=== PATIENT | female | born 1970 | race Caucasian/White ===

== ENCOUNTER 2020-01-29 07:45 | Inpatient (IN) | payer BC ==
[2020-01-29] MEDS ORDERED: SODIUM CHLORIDE 0.9% 500 ML 500 ML IV ONE ×2 (08:13→09:07)
--- NOTE | 2020-01-29 08:16 | ED ---
General Adult HPI - General Chief complaint: Chest Pain Stated complaint: chest pain Time Seen by Provider: 01/29/20 07:56 Source: patient, RN notes reviewed, old records reviewed Mode of arrival: wheelchair Limitations: no limitations - History of Present Illness Initial comments: 49-year-old female presented for evaluation of chest pain. She states that yesterday evening she developed a left flank pain which is somewhat typical for this patient with a known history of renal colic and recurrent kidney stones. This progressed into a anterior chest pain with associated left arm tingling and numbness. Patient has no known history of coronary artery disease. She states the pain persisted yesterday evening and she felt she should be checked out this morning. She has no known history of coronary artery disease, she is a former smoker, she does have a family history of coronary artery disease. She denies vomiting but states she had some nausea associated with her symptoms. No abdominal pain. No dysuria or hematuria. - Related Data Home Medications Medication Instructions Recorded Confirmed Aspirin/Caffeine [Anacin 400-32 mg 1 tab PO DAILY 01/29/20 01/29/20 Tablet] Naproxen Sodium [Aleve] 660 mg PO ONCE PRN 01/29/20 01/29/20 Allergies Allergy/AdvReac Type Severity Reaction Status Date / Time No Known Allergies Allergy Verified 01/29/20 09:13 Review of Systems ROS Statement: Those systems with pertinent positive or pertinent negative responses have been documented in the HPI. ROS Other: All systems not noted in ROS Statement are negative. Past Medical History Past Medical History: No Reported History History of Any Multi-Drug Resistant Organisms: None Reported Past Surgical History: Tubal Ligation Additional Past Surgical History / Comment(s): lithotripsy for kidney stones Past Psychological History: No Psychological Hx Reported Smoking Status: Former smoker Past Alcohol Use History: None Reported Past Drug Use History: None Reported General Exam Limitations: no limitations General appearance: alert, in no apparent distress Head exam: Present: atraumatic, normocephalic Eye exam: Present: normal appearance, PERRL ENT exam: Present: normal exam Neck exam: Present: normal inspection. Absent: tenderness, meningismus Respiratory exam: Present: normal lung sounds bilaterally. Absent: respiratory distress, wheezes Cardiovascular Exam: Present: regular rate, normal rhythm GI/Abdominal exam: Present: soft. Absent: distended, tenderness, guarding Extremities exam: Present: normal inspection, normal capillary refill. Absent: pedal edema, calf tenderness Back exam: Present: normal inspection, full ROM. Absent: CVA tenderness (R), CVA tenderness (L) Neurological exam: Present: alert, oriented X3, CN II-XII intact. Absent: motor sensory deficit Psychiatric exam: Present: normal affect, normal mood Skin exam: Present: warm, dry, intact. Absent: cyanosis, diaphoretic Course Vital Signs 01/29/20 01/29/20 01/29/20 07:51 08:40 08:45 Temperature 98 F Pulse Rate 70 59 L 65 Respiratory 16 Rate Blood Pressure 226/100 200/109 200/109 O2 Sat by Pulse 99 98 Oximetry 01/29/20 01/29/20 01/29/20 09:00 09:15 09:30 Temperature Pulse Rate 60 57 L Respiratory Rate Blood Pressure 203/111 184/149 204/105 O2 Sat by Pulse Oximetry 01/29/20 09:45 Temperature Pulse Rate 57 L Respiratory Rate Blood Pressure 215/111 O2 Sat by Pulse Oximetry EKG Findings - EKG Comments: EKG Findings:: EKG: Normal sinus rhythm, rate of 61, CT interval 148, QRS duration 96, QTC [address] segment elevation. Medical Decision Making - Medical Decision Making 49-year-old female with chest pain and hypertension. EKG showing sinus rhythm without ST segment elevation. Chest x-ray is negative for acute cardiac primary findings. Given the significantly elevated blood pressure she does receive CT angiography of the aorta. This is negative for dissection or aneurysmal change. She has severe hydronephrosis on the right and multiple obstructing renal calculi bilaterally. She has a history of renal colic and stones. She did have some left-sided flank pain although not severe. She has hemoglobin 10.6. Calcium is elevated at 11.2. Initial troponin is negative. She has been initiated on both IV and oral antihypertensive medication. She will be admitted for cardiac rule out. Case discussed with Dr. Luna who will admit. - Lab Data Result diagrams: 01/29/20 08:27 01/29/20 08:27 Lab Results 01/29/20 01/29/20 01/29/20 Range/Units 08:27 08:27 08:27 WBC 7.7 (3.8-10.6) k/uL RBC 4.91 (3.80-5.40) m/uL Hgb 10.6 L (11.4-16.0) gm/dL Hct 36.3 (34.0-46.0) % MCV 74.0 L (80.0-100.0) fL MCH 21.6 L (25.0-35.0) pg MCHC 29.2 L (31.0-37.0) g/dL RDW 17.2 H (11.5-15.5) % Plt Count 306 (150-450) k/uL Neutrophils % 66 % Lymphocytes % 22 % Monocytes % 5 % Eosinophils % 5 % Basophils % 1 % Neutrophils # 5.1 (1.3-7.7) k/uL Lymphocytes # 1.7 (1.0-4.8) k/uL Monocytes # 0.4 (0-1.0) k/uL Eosinophils # 0.4 (0-0.7) k/uL Basophils # 0.1 (0-0.2) k/uL Hypochromasia Marked Anisocytosis Slight Microcytosis Moderate PT 9.5 (9.0-12.0) sec INR 0.9 (<1.2) APTT 23.0 (22.0-30.0) sec D-Dimer 0.31 (<0.60) mg/L FEU Sodium 135 L (137-145) mmol/L Potassium 4.1 (3.5-5.1) mmol/L Chloride 111 H (98-107) mmol/L Carbon Dioxide 21 L (22-30) mmol/L Anion Gap 3 mmol/L BUN 16 (7-17) mg/dL Creatinine 0.68 (0.52-1.04) mg/dL Est GFR (CKD-EPI)AfAm >90 (>60 ml/min/1.73 sqM) Est GFR (CKD-EPI)NonAf >90 (>60 ml/min/1.73 sqM) Glucose 102 H (74-99) mg/dL Calcium 11.2 H (8.4-10.2) mg/dL Magnesium 1.7 (1.6-2.3) mg/dL Total Bilirubin 0.4 (0.2-1.3) mg/dL AST 27 (14-36) U/L ALT 16 (4-34) U/L Alkaline Phosphatase 138 H (38-126) U/L Troponin I (0.000-0.034) ng/mL NT-Pro-B Natriuret Pep pg/mL Total Protein 7.0 (6.3-8.2) g/dL Albumin 3.9 (3.5-5.0) g/dL Lipase 78 (23-300) U/L Urine Color Urine Appearance (Clear) Urine pH (5.0-8.0) Ur Specific [place] (1.001-1.035) Urine Protein (Negative) Urine Glucose (UA) (Negative) Urine Ketones (Negative) Urine Blood (Negative) Urine Nitrite (Negative) Urine Bilirubin (Negative) Urine Urobilinogen (<2.0) mg/dL Ur Leukocyte Esterase (Negative) Urine RBC (0-5) /hpf Urine WBC (0-5) /hpf Ur Squamous Epith Cells (0-4) /hpf Urine Bacteria (None) /hpf Urine Mucus (None) /hpf 01/29/20 01/29/20 01/29/20 Range/Units 08:27 08:27 08:27 WBC (3.8-10.6) k/uL RBC (3.80-5.40) m/uL Hgb (11.4-16.0) gm/dL Hct (34.0-46.0) % MCV (80.0-100.0) fL MCH (25.0-35.0) pg MCHC (31.0-37.0) g/dL RDW (11.5-15.5) % Plt Count (150-450) k/uL Neutrophils % % Lymphocytes % % Monocytes % % Eosinophils % % Basophils % % Neutrophils # (1.3-7.7) k/uL Lymphocytes # (1.0-4.8) k/uL Monocytes # (0-1.0) k/uL Eosinophils # (0-0.7) k/uL Basophils # (0-0.2) k/uL Hypochromasia Anisocytosis Microcytosis PT (9.0-12.0) sec INR (<1.2) APTT (22.0-30.0) sec D-Dimer (<0.60) mg/L FEU Sodium (137-145) mmol/L Potassium (3.5-5.1) mmol/L Chloride (98-107) mmol/L Carbon Dioxide (22-30) mmol/L Anion Gap mmol/L BUN (7-17) mg/dL Creatinine (0.52-1.04) mg/dL Est GFR (CKD-EPI)AfAm (>60 ml/min/1.73 sqM) Est GFR (CKD-EPI)NonAf (>60 ml/min/1.73 sqM) Glucose (74-99) mg/dL Calcium (8.4-10.2) mg/dL Magnesium (1.6-2.3) mg/dL Total Bilirubin (0.2-1.3) mg/dL AST (14-36) U/L ALT (4-34) U/L Alkaline Phosphatase (38-126) U/L Troponin I <0.012 (0.000-0.034) ng/mL NT-Pro-B Natriuret Pep 497 pg/mL Total Protein (6.3-8.2) g/dL Albumin (3.5-5.0) g/dL Lipase (23-300) U/L Urine Color Light Yellow Urine Appearance Clear (Clear) Urine pH 6.5 (5.0-8.0) Ur Specific [place] 1.010 (1.001-1.035) Urine Protein Trace H (Negative) Urine Glucose (UA) Negative (Negative) Urine Ketones Negative (Negative) Urine Blood Moderate H (Negative) Urine Nitrite Negative (Negative) Urine Bilirubin Negative (Negative) Urine Urobilinogen <2.0 (<2.0) mg/dL Ur Leukocyte Esterase Trace H (Negative) Urine RBC 96 H (0-5) /hpf Urine WBC 3 (0-5) /hpf Ur Squamous Epith Cells 2 (0-4) /hpf Urine Bacteria Rare H (None) /hpf Urine Mucus Rare H (None) /hpf Disposition Clinical Impression: Chest pain, Hypertension Disposition: ADMITTED IP TO THIS HOSP Condition: Stable Is patient prescribed a controlled substance at d/c from ED?: No Referrals: Jenifer Katz MD [Primary Care Provider] - 1-2 days Decision to Admit Reason: Admit from EC Decision Date: 01/29/20 Decision Time: 10:38
[2020-01-29 08:39] LABS: Anisocytosis Slight; Basophils # (A) 0.1 k/uL (0-0.2); Basophils % (A) 1 %; Eosinophils # (A) 0.4 k/uL (0-0.7); Eosinophils % (A) 5 %; HCT 36.3 % (34.0-46.0); HGB 10.6 gm/dL (11.4-16.0); Hypochromasia Marked; Lymphocytes # (A) 1.7 k/uL (1.0-4.8); Lymphocytes % (A) 22 %; MCH 21.6 pg (25.0-35.0); MCHC 29.2 g/dL (31.0-37.0); Mean Platelet Volume 7.2; Microcytosis Moderate; Monocytes # (A) 0.4 k/uL (0-1.0); Monocytes % (A) 5 %; Neutrophils # (A) 5.1 k/uL (1.3-7.7); Neutrophils % (A) 66 %; Platelet Count 306 k/uL (150-450); RBC 4.91 m/uL (3.80-5.40); RDW 17.2 % (11.5-15.5); WBC 7.7 k/uL (3.8-10.6)
--- NOTE | 2020-01-29 08:42 | XR ---
EXAMINATION TYPE: XR chest 1V portable DATE OF EXAM: 01/29/2020 Comparison: None Clinical History: 49-year-old female chest pain Findings: Heart limits of normal in size. Aorta and pulmonary vasculature within normal limits. Hazy lower lung opacities relating to overlying soft tissue. This limits the lung parenchyma particularly at the lef t base. No definite consolidation or pleural effusion. Impression: Limited exam due to patient body habitus. No definite acute process.
[2020-01-29 08:46] LABS: Appearance,Urine Clear (Clear); Bacteria,Urine Rare /hpf; Bilirubin,Urine Negative (Negative); Blood,Urine Moderate (Negative); Color,Urine Light Yellow; Glucose,Urine (UA) Negative (Negative); Ketones,Urine Negative (Negative); Leukocyte Esterase,Urine Trace (Negative); Mucus,Urine Rare /hpf; Nitrite,Urine Negative (Negative); PH, Urine 6.5 (5.0-8.0); Protein,Urine Trace (Negative); RBC,Urine 96 /hpf (0-5); Squamous Epithelial Cell,Urine 2 /hpf (0-4); Urobilinogen,Urine <2.0 mg/dL (<2.0); WBC,Urine 3 /hpf (0-5)
[2020-01-29 08:52] LABS: ALT 16 U/L (4-34); AST 27 U/L (14-36); African American GFR (CKD) >90 (>60 ml/min/1.73 sqM); Albumin 3.9 g/dL (3.5-5.0); Alkaline Phosphatase 138 U/L (38-126); Anion Gap 3 mmol/L; Blood Urea Nitrogen 16 mg/dL (7-17); Calcium 11.2 mg/dL (8.4-10.2); Carbon Dioxide 21 mmol/L (22-30); Chloride 111 mmol/L (98-107); Glucose 102 mg/dL (74-99); Magnesium 1.7 mg/dL (1.6-2.3); Non-African American GFR(CKD) >90 (>60 ml/min/1.73 sqM); Potassium 4.1 mmol/L (3.5-5.1); Sodium 135 mmol/L (137-145); Total Bilirubin 0.4 mg/dL (0.2-1.3)
[2020-01-29 08:54] LABS: D-Dimer 0.31 mg/L FEU (<0.60); INR 0.9 (<1.2); Prothrombin Time 9.5 sec (9.0-12.0)
[2020-01-29] MEDS ORDERED: LABETALOL 5 MG/ML VIAL MDV IVP STA (09:05)
--- NOTE | 2020-01-29 10:20 | CT ---
EXAMINATION TYPE: CT angio thor/abd pel aorta DATE OF EXAM: 01/29/2020 COMPARISON: Chest radiograph 01/25/2020 HISTORY: chest pain, flank pain CT DLP: 1943.9 mGycm. Automated Exposure Control for Dose Reduction was Utilized. CONTRAST: CTA scan of the thorax, abdomen and pelvis is performed without and with IV Contrast, patient injecte d with 100 mL of Isovue 370. Three-dimensional and MIP images generated and utilized on a separate wo rkstation. FINDINGS: CTA chest, abdomen, and pelvis: Precontrast images demonstrate no evidence of intramural hematoma. Le ft-sided arch with classic branching pattern. The thoracic and abdominal aorta does not demonstrate a neurysmal dilatation, dissection, or stenosis. No atherosclerotic disease. Thoracic aortic great ve ssels are patent. The origins of the superior mesenteric artery, renal arteries, inferior mesenteric artery, and celiac axis are patent. Bilateral iliac vessels and common femoral arteries are normal in morphology. Three-dimensional and NIP images consistent with the above findings. There is good opacification of the main and segmental pulmonary arteries with no evidence of filling defect to suggest pulmonary embolus. LUNGS: Numerous sub-5 mm subsolid pulmonary nodules are seen scattered throughout the bilateral lungs . 3 mm pulmonary nodule adjacent to the major fissure within the right lower lobe which may represent perifissural lymph node (504:50). There is no pleural effusion or pneumothorax seen. The tracheobr onchial tree is patent. MEDIASTINUM/SOFT TISSUES: No axillary, hilar, or mediastinal lymphadenopathy greater than 1 cm. Cardi ac size is normal. No pericardial effusion. LIVER: Normal. BILIARY SYSTEM: Normal. PANCREAS: Normal. SPLEEN: Normal. ADRENALS: Normal. KIDNEYS: Severe hydronephrosis bilaterally. On the right there is severe proximal hydroureter with a 5 x 7 mm calculus within the ureteropelvic junction (502:58). On the left there is severe hydroureter with 3 m id ureteral calculi measuring 6 x 8 mm, 2 mm, and 6 mm (502:56), and within the distal ureter there i s Steinstrasse ureteral calculi spanning 12 mm (502:68), and 2 additional adjacent calculi measuring 6 and 7 mm near the ureterovesicular junction (502:66). Additional nonobstructing renal calculi bilaterally, largest measuring up to 11 x 1 x 6 mm (502:72) a nd 13 x 5 x 17 mm (502:64) within the right renal lower pole. Largest calculi on the left measure up to 6 mm within the left renal pole and interpolar kidney, with additional scattered punctate left corbin al calculi. No calculi within the urinary bladder. BOWEL: No obstruction or thickening. PERITONEUM: No pneumoperitoneum. No free fluid. LYMPH NODES: No lymphadenopathy. PELVIS: Normal urinary bladder. Normal uterus. Cystic area of the right adnexa measures 2.6 cm, withi n range for physiologic changes. MUSCULOSKELETAL: Degenerative changes of the spine. IMPRESSION: 1. No thoracic or aortic aneurysm or dissection. 2. Although not a dedicated PE study, there is no main or segmental pulmonary emboli. 3. Severe hydronephrosis and hydroureter bilaterally. There is a 5 x 7 mm obstructing calculus of the right ureteropelvic junction. There are numerous obstructing left ureteral calculi of the mid and di stal ureter as described above. Additional nonobstructing renal calculi.
[2020-01-29] MEDS ORDERED: amLODIPine 5 MG TAB PO STA (10:30)
[2020-01-29] MEDS ORDERED: TAMSULOSIN 0.4 MG CAP.ER.24H PO STA (10:31)
[2020-01-29] MEDS ORDERED: NALOXONE 0.4 MG/ML 1 ML VIAL IV PRN (10:33)
[2020-01-29] MEDS ORDERED: ACETAMINOPHEN TAB 325 MG TAB PO PRN (10:33)
[2020-01-29] MEDS ORDERED: MORPHINE SULFATE 4 MG/ML SYRINGE IV PRN (10:33)
[2020-01-29] MEDS ORDERED: hydrALAZINE HCL 20 MG/ML 1 ML VIAL IVP STA (11:28)
[2020-01-29] MEDS ORDERED: ALPRAZolam 0.25 MG TAB PO PRN (20:40)
[2020-01-29] MEDS ORDERED: TEMAZEPAM 15 MG CAP PO PRN (20:41)
[2020-01-29] MEDS ORDERED: ASPIRIN PO SCH (20:45)
[2020-01-29] MEDS ORDERED: CAFFEINE PO SCH (20:45)
[2020-01-29] MEDS: HEPARIN SODIUM,PORCINE 5,000 UNIT/ML 1 ML VIAL SQ SCH (20:58)
[2020-01-29] MEDS: SODIUM CHLORIDE 0.9% 1,000 ML IV SCH (20:58)
--- NOTE | 2020-01-29 22:25 | HP ---
HISTORY AND PHYSICAL DATE OF SERVICE: 01/29/2020 CHIEF COMPLAINTS: Chest pain and flank pain. HISTORY OF PRESENT ILLNESS: This 49-year-old woman with a past medical history of multiple medical problems, including history of nephrolithiasis, tubal ligation, being followed by Dr. Katz in the outpatient setting, initially had left flank pain which was thought to be associated with renal stones, but subsequently patient had chest pain felt in the anterior part of the chest with some left arm tingling and numbness. The patient came to [facility] and was admitted for evaluation and treatment. There is no history of any fever, rigor or chills. No history of headache, loss of consciousness, seizures. WBC 7.7, hemoglobin 10.6, sodium is 135. UA shows some RBCs. Otherwise, a thoracic aortic CT scan was done which showed numerous sub-solid pulmonary nodules and severe hydronephrosis. Hydroureter bilaterally was also noted. The patient was admitted for further evaluation and treatment. PAST MEDICAL HISTORY: History of kidney stones, history of nicotine dependence. HOME MEDICATIONS: 1. Aleve 660 mg p.o. p.r.n. 2. Anacin 1 tablet p.o. daily. ALLERGIES: NONE. FAMILY HISTORY: History of CHF, coronary artery disease, diabetes mellitus, myocardial infarction in the family. SOCIAL HISTORY: No history of smoking. No history of alcohol intake. REVIEW OF SYSTEMS: ENT: No diminished hearing. No diminished vision. CARDIOVASCULAR SYSTEM: As mentioned earlier. RESPIRATORY SYSTEM: As mentioned earlier. GI: As mentioned earlier. : As mentioned earlier. NERVOUS SYSTEM: No numbness, weakness. ALLERGY/IMMUNOLOGY: No asthma, hayfever. MUSCULOSKELETAL: As mentioned earlier. HEMATOLOGY/ONCOLOGY: No history of anemia. ENDOCRINE: No history of diabetes, hypothyroidism. CONSTITUTIONAL: As mentioned earlier. DERMATOLOGY: Negative. RHEUMATOLOGY: Negative. PSYCHIATRY: As mentioned earlier. PHYSICAL EXAMINATION: Patient alert and oriented x3. Pulse 70, blood pressure 150/79, respiration 20, temperature normal, pulse ox 99% on room air. HEENT: Conjunctivae normal. NECK: No jugular venous distention. CARDIOVASCULAR SYSTEM: S1, S2 muffled. RESPIRATORY SYSTEM: Breath sounds diminished at the bases. No rhonchi. No crackles. ABDOMEN: Soft, non-tender. No mass palpable. LEGS: No edema. No swelling. NERVOUS SYSTEM: Higher functions as mentioned earlier. Moves all 4 limbs. No focal motor or sensory deficit. LYMPHATICS: No lymph node palpable in neck, axillae or groin. SKIN: No ulcer, rash, bleeding. JOINTS: No active deforming arthropathy. LABS: Labs at this time show WBC 7.7, hemoglobin 10.6, sodium 135. Other labs are noted. Troponins are negative. ASSESSMENT: 1. Chest pain for evaluation; possible unstable angina. 2. Left flank pain with possible nephrolithiasis. 3. Bilateral hydronephrosis. 4. History of nephrolithiasis. 5. History of nicotine dependence. 6. Anemia, microcytic. 7. Hyponatremia. 8. Hypercalcemia of undetermined etiology. 9. Hypercalcemia with high PTH. Rule out hyperparathyroidism, primary. 10.Hematuria. RECOMMENDATIONS AND DISCUSSION: In this 49-year-old woman who presented with multiple complex medical issues, at this time we will monitor the patient closely. I would recommend first of all to rule out myocardial infarction. Cardiology consultation. Possible stress test. I would also recommend an endocrine evaluation as an outpatient and also a urology evaluation for the diagnosis and management of above-mentioned multiple medical issues. Prognosis guarded. Further recommendations to follow. A copy of this dictation is being forwarded to Dr. Katz, who is the primary physician. MMODL / IJN: [id number] /
[2020-01-30] MEDS: SODIUM CHLORIDE 0.9% 1,000 ML IV SCH ×2 (04:29→17:41)
[2020-01-30] MEDS: PANTOPRAZOLE 40 MG TABLET PO SCH (06:54)
[2020-01-30 08:33] LABS: Anisocytosis Slight; Basophils # (A) 0.1 k/uL (0-0.2); Basophils % (A) 1 %; Eosinophils # (A) 0.2 k/uL (0-0.7); Eosinophils % (A) 3 %; HCT 33.5 % (34.0-46.0); HGB 9.7 gm/dL (11.4-16.0); Hypochromasia Marked; Lymphocytes # (A) 1.6 k/uL (1.0-4.8); Lymphocytes % (A) 23 %; MCH 21.5 pg (25.0-35.0); MCV 74.2 fL (80.0-100.0); Microcytosis Moderate; Monocytes # (A) 0.3 k/uL (0-1.0); Monocytes % (A) 5 %; Neutrophils # (A) 4.6 k/uL (1.3-7.7); Neutrophils % (A) 66 %; Platelet Count 308 k/uL (150-450); RBC 4.51 m/uL (3.80-5.40); RDW 17.4 % (11.5-15.5); WBC 6.9 k/uL (3.8-10.6)
[2020-01-30 08:46] LABS: African American GFR (CKD) >90 (>60 ml/min/1.73 sqM); Anion Gap 5 mmol/L; Blood Urea Nitrogen 13 mg/dL (7-17); Calcium 11.2 mg/dL (8.4-10.2); Carbon Dioxide 22 mmol/L (22-30); Chloride 112 mmol/L (98-107); Glucose 98 mg/dL (74-99); Non-African American GFR(CKD) >90 (>60 ml/min/1.73 sqM); Potassium 3.9 mmol/L (3.5-5.1); Sodium 139 mmol/L (137-145)
[2020-01-30] MEDS ORDERED: atenoloL 25 MG TAB PO SCH (09:00)
[2020-01-30] MEDS ORDERED: amLODIPine 5 MG TAB PO SCH (09:00)
[2020-01-30] MEDS: lisinopriL 20 MG TAB PO SCH (09:36)
[2020-01-30] MEDS: HEPARIN SODIUM,PORCINE 5,000 UNIT/ML 1 ML VIAL SQ SCH ×2 (09:36→21:43)
--- NOTE | 2020-01-30 11:17 | P.CRDCN ---
History of Present Illness History of present illness: HISTORY OF PRESENTING ILLNESS This is a pleasant 49-year-old female past medical history significant for kidney stones. She denies prior history of coronary artery disease and has never been diagnosed with hypertension in the past. We have been asked to see in consultation for chest pain. She has been having epigastric pain that radiated through to the back and bilateral flank region for a few weeks. This was associated with some mild nausea and feeling dizzy at times. She has a history of kidney stones and thought she was possibly passing a stone. Yesterday the pain started traveling up into the mid sternal chest more prompting her to come in for evaluation. Her blood pressure on arrival was extremely elevated, 226/100. She was given Norvasc, IV hydralazine and IV labetalol. DIAGNOSTICS EKG reveals sinus mechanism with no acute ST or T wave abnormalities noted. Chest xray negative for any acute cardiopulmonary process. CT of the thoracic aorta reveals numerous. Solid pulmonary nodules scattered throughout the lungs bilaterally, no evidence of aortic dissection, aneurysm or stenosis and bilateral severe hydronephrosis with a 5.7 mm obstructing calculus of the right ureteropelvic junction and numerous obstructing left ureteral calculi. Laboratory reviewed, WBC 6.9, hemoglobin 9.7, platelets 308, d-dimer 0.31, sodium 139, potassium 3.9, creatinine 0.65, magnesium 1.7, cardiac enzymes negative 3, NT proBNP 497. She takes no daily cardiac medications. REVIEW OF SYSTEMS At the time of my exam: CONSTITUTIONAL: Denies fever or chills. CARDIOVASCULAR: Denies chest pain, shortness of breath, orthopnea, PND or palpitations. RESPIRATORY: Denies cough. GASTROINTESTINAL: Denies abdominal pain, diarrhea, constipation, nausea or vomiting. MUSCULOSKELETAL: Denies myalgias. NEUROLOGIC: Denies numbness, tingling or weakness. ENDOCRINE: Denies fatigue, weight change, polydipsia or polyurina. GENITOURINARY: Denies burning, hematuria or urgency with micturation. HEMATOLOGIC: Denies history of anemia or bleeding. PHYSICAL EXAMINATION Blood pressure 184/89 heart rate 65 afebrile and maintaining oxygen saturation on room air. CONSTITUTIONAL: No apparent distress. HEENT: Head is normocephalic. Pupils are equal, round. Sclerae anicteric. Mucous membranes of the mouth are moist. No JVD. No carotid bruit. CHEST EXAMINATION: Lungs are clear to auscultation. No chest wall tenderness is noted on palpation or with deep breathing. HEART EXAMINATION: Regular rate and rhythm. S1, S2 heard. No murmurs, gallops or rub. ABDOMEN: Soft, nontender. Positive bowel sounds. EXTREMITIES: 2+ peripheral pulses, no lower extremity edema and no calf tenderness. NEUROLOGIC EXAMINATION: Patient is awake, alert and oriented x3. ASSESSMENT Chest pain, atypical for angina. Hypertensive emergency Bilateral renal calculi with hydronephrosis PLAN An acute coronary event has been ruled out. Obtain 2-D echocardiogram and Doppler study to assess cardiac structure and function. Increase amlodipine to 5 mg twice a day, initiate labetalol 200 mg twice a day and lisinopril 20 mg daily. Consult urology. Recommend outpatient stress testing when hydronephrosis has been addressed and blood pressure is better controlled. Thank you kindly for this consultation. Nurse Practitioner note has been reviewed, I agree with a documented findings and plan of care. Patient was seen and examined. Past Medical History Past Medical History: No Reported History Additional Past Medical History / Comment(s): kidney stones History of Any Multi-Drug Resistant Organisms: None Reported Past Surgical History: Tubal Ligation Additional Past Surgical History / Comment(s): lithotripsy for kidney stones, tubal ligation Past Anesthesia/Blood Transfusion Reactions: No Reported Reaction Past Psychological History: No Psychological Hx Reported Smoking Status: Former smoker Past Alcohol Use History: None Reported Past Drug Use History: None Reported - Past Family History Father Family Medical History: Congestive Heart Failure (CHF), Coronary Artery Disease (CAD), Diabetes Mellitus, Myocardial Infarction ([place]) Medications and Allergies Home Medications Medication Instructions Recorded Confirmed Type Aspirin/Caffeine [Anacin 400-32 mg 1 tab PO DAILY 01/29/20 01/29/20 History Tablet] Naproxen Sodium [Aleve] 660 mg PO ONCE PRN 01/29/20 01/29/20 History Allergies Allergy/AdvReac Type Severity Reaction Status Date / Time No Known Allergies Allergy Verified 01/29/20 09:13 Physical Exam Vitals: Vital Signs Temp Pulse Pulse Resp BP BP Pulse Ox 01/30/20 07:50 93.7 F L 65 18 184/89 99 01/30/20 04:00 66 18 169/90 96 01/30/20 00:00 68 18 186/80 98 01/29/20 20:00 98.0 F 65 18 166/81 99 01/29/20 17:30 70 20 150/79 99 01/29/20 17:00 74 18 139/66 99 01/29/20 16:30 74 20 138/73 98 01/29/20 16:00 68 18 142/79 99 01/29/20 15:30 83 18 141/83 97 01/29/20 15:00 67 125/65 01/29/20 14:30 78 118/62 01/29/20 14:00 84 145/76 01/29/20 13:30 68 18 138/77 99 01/29/20 13:00 80 18 151/92 99 01/29/20 12:39 62 16 151/92 99 01/29/20 12:15 81 16 184/107 01/29/20 11:59 69 16 185/107 99 01/29/20 11:30 62 20 214/114 99 01/29/20 10:30 59 L 219/112 01/29/20 10:15 60 202/108 01/29/20 10:00 61 198/102 01/29/20 09:45 57 L 215/111 01/29/20 09:30 204/105 01/29/20 09:15 57 L 184/149 01/29/20 09:00 60 203/111 01/29/20 08:45 65 200/109 98 01/29/20 08:40 59 L 200/109 Intake and Output 01/29/20 01/30/20 01/30/20 22:59 06:59 14:59 Output Total 100 Balance -100 Output: Urine 100 Other: Voiding Method Toilet Toilet # Voids 1 Weight 95.2 kg Results 01/30/20 07:48 01/30/20 07:48 Cardiac Enzymes 01/29/20 01/29/20 01/29/20 Range/Units 08:27 08:27 12:14 AST 27 (14-36) U/L Troponin I <0.012 <0.012 (0.000-0.034) ng/mL 01/29/20 Range/Units 15:18 AST (14-36) U/L Troponin I <0.012 (0.000-0.034) ng/mL Coagulation 01/29/20 Range/Units 08:27 PT 9.5 (9.0-12.0) sec APTT 23.0 (22.0-30.0) sec CBC 01/29/20 Range/Units 08:27 WBC 7.7 (3.8-10.6) k/uL RBC 4.91 (3.80-5.40) m/uL Hgb 10.6 L (11.4-16.0) gm/dL Hct 36.3 (34.0-46.0) % Plt Count 306 (150-450) k/uL Comprehensive Metabolic Panel 01/29/20 Range/Units 08:27 Sodium 135 L (137-145) mmol/L Potassium 4.1 (3.5-5.1) mmol/L Chloride 111 H (98-107) mmol/L Carbon Dioxide 21 L (22-30) mmol/L BUN 16 (7-17) mg/dL Creatinine 0.68 (0.52-1.04) mg/dL Glucose 102 H (74-99) mg/dL Calcium 11.2 H (8.4-10.2) mg/dL AST 27 (14-36) U/L ALT 16 (4-34) U/L Alkaline Phosphatase 138 H (38-126) U/L Total Protein 7.0 (6.3-8.2) g/dL Albumin 3.9 (3.5-5.0) g/dL Current Medications Generic Name Dose Route Start Last Admin Trade Name Freq PRN Reason Stop Dose Admin Acetaminophen 650 mg 01/29/20 10:33 Acetaminophen Tab 325 Mg Tab PO Q6HR PRN Mild Pain or Fever > 100.5 Hydrocodone Bitart/Acetaminophen 1 each 01/29/20 20:40 Hydrocodone/Apap 5-325mg 1 Each Tab PO Q6HR PRN Pain Alprazolam 0.25 mg 01/29/20 20:40 Alprazolam 0.25 Mg Tab PO TID PRN Anxiety Amlodipine Besylate 5 mg 01/30/20 09:00 Amlodipine 5 Mg Tab PO DAILY LUZ ELENA Heparin Sodium (Porcine) 5,000 unit 01/29/20 21:00 01/29/20 20:58 Heparin Sodium,Porcine 5,000 Unit/Ml 1 Ml Vial SQ 5,000 unit Q12HR LUZ ELENA Administration Sodium Chloride 1,000 mls @ 130 mls/hr 01/29/20 20:45 01/30/20 04:29 Saline 0.9% IV Not Given .[id number] LUZ ELENA Morphine Sulfate 4 mg 01/29/20 10:33 Morphine Sulfate 4 Mg/Ml Syringe IV Q4HR PRN Severe Pain Naloxone HCl 0.2 mg 01/29/20 10:33 Naloxone 0.4 Mg/Ml 1 Ml Vial IV Q2M PRN Opioid Reversal Pantoprazole Sodium 40 mg 01/30/20 07:30 01/30/20 06:54 Pantoprazole 40 Mg Tablet PO 40 mg [id number] LUZ ELENA Administration Temazepam 15 mg 01/29/20 20:41 Temazepam 15 Mg Cap PO HS PRN Insomnia Intake and Output 01/29/20 01/30/20 01/30/20 22:59 06:59 14:59 Output Total 100 Balance -100 Output: Urine 100 Other: Voiding Method Toilet Toilet # Voids 1 Weight 95.2 kg 01/29/20 08:27 01/29/20 08:27
[2020-01-30] MEDS: LABETALOL 200 MG TAB PO SCH ×2 (11:35→21:43)
--- NOTE | 2020-01-30 11:40 | ECHOF ---
Referral Reason:cp MEASUREMENTS -------- HEIGHT: 154.9 cm WEIGHT: 94.8 kg BP: RVIDd: 2.7 cm (< 3.3) IVSd: 1.2 cm (0.6 - 1.1) LVIDd: 4.0 cm (3.9 - 5.3) LVPWd: 1.1 cm (0.6 - 1.1) IVSs: 1.7 cm LVIDs: 1.9 cm LVPWs: 1.9 cm LAESV Index (A-L): 33.39 ml/m Ao Diam: 2.9 cm (2.0 - 3.7) AV Cusp: 1.6 cm (1.5 - 2.6) LA Diam: 2.5 cm (2.7 - 3.8) MV EXCURSION: 16.659 mm (> 18.000) MV EF SLOPE: 101 mm/s (70 - 150) EPSS: 0.8 cm MV E Jamir: 0.94 m/s MV DecT: 284 ms MV A Jamir: 1.06 m/s MV E/A Ratio: 0.89 AV maxP.08 mmHg AV meanP.73 mmHg AR PHT: 1723 ms RAP: 5.00 mmHg RVSP: 37.89 mmHg TAPSE: 28.44 mm FINDINGS -------- This was a technically good study. The left ventricular size is normal. There is borderline concentric left ventricular hypertrophy. Overall left ventricular systolic function is normal with, an EF between 55 - 60 %. The diastolic filling pattern is normal for the age of the patient 12.34. The right ventricle is normal in size. LA is midly dilated 29-33ml/m2. The right atrial size is normal. The aortic valve is trileaflet and appears structurally normal. There is mild aortic regurgitation. Peak/mean gradient across the Aortic Valve is 22.08mmHg / 8.73mmHg. The mitral valve is normal. There is trace mitral regurgitation. The tricuspid valve appears structurally normal. No regurgitation noted There is borderline pulmo nary hypertension. The right ventricular systolic pressure, as measured by Doppler, is 37.89mmHg. There is no pulmonic regurgitation present. The aortic root size is normal. Normal inferior vena cava with normal inspiratory collapse consistent with estimated right atrial pre ssure of 5 mmHg. There is a trivial pericardial effusion present. CONCLUSIONS -------- 1. The left ventricular size is normal. 2. There is borderline concentric left ventricular hypertrophy. 3. Overall left ventricular systolic function is normal with, an EF between 55 - 60 %. 4. The diastolic filling pattern is normal for the age of the patient 12.34 5. LA is midly dilated 29-33ml/m2. 6. The aortic valve is trileaflet and appears structurally normal. 7. Peak/mean gradient across the Aortic Valve is 22.08mmHg / 8.73mmHg. 8. There is trace mitral regurgitation. 9. There is borderline pulmonary hypertension. 10. The right ventricular systolic pressure, as measured by Doppler, is 37.89mmHg. 11. There is a trivial pericardial effusion present. [employer]: Rhea Torrez RDCS
--- NOTE | 2020-01-30 12:41 | P.PN ---
Subjective This is a pleasant 49 years old female with no significant past medical history. Presents with left flank pain and chest pain. Her pains are resolved today and directed as 0/10 both in her chest and her flank. Also patient denies any upper respiratory symptoms. She denies UTI symptoms like no dysuria or change in frequency or hesitancy or urgency. No abdominal pain. No nausea vomiting. Vitals are stable and patient is afebrile. Patient is still hypertensive. Blood pressure 185/85. Blood pressure medication when was adjusted by cardiol ogy team Labs looks unremarkable including CBC, INR, d-dimer is negative as 0.31, unremarkable BMP and liver enzymes. Troponins are negative 3 with less than 0.012. Urinalysis showing mild hematuria Thoracic aortic CAT scan showing no thoracic aneurysm no PE, severe hydronephrosis and hydroureter bilaterally with 5 x 7 mm obstructing calculus of the right ureteropelvic junction and numerous obstructing left ureteral calculi X-ray: No acute process. Echocardiogram: Ejection fraction 55-60%. CONSTITUTIONAL: No fever, no malaise, no fatigue. HEENT: No recent visual problems or hearing problems. Denied any sore throat. CARDIOVASCULAR: No orthopnea, PND, no palpitations, no syncope. PULMONARY: No shortness of breath, no cough, no hemoptysis. GASTROINTESTINAL: No diarrhea, no nausea, no vomiting, no abdominal pain. Normoactive bowel sounds. NEUROLOGICAL: No headaches, no weakness, no numbness. HEMATOLOGICAL: Denies any bleeding or petechiae. Active Medications Generic Name Dose Route Start Last Admin Trade Name Freq PRN Reason Stop Dose Admin Acetaminophen 650 mg 01/29/20 10:33 Acetaminophen Tab 325 Mg Tab PO Q6HR PRN Mild Pain or Fever > 100.5 Hydrocodone Bitart/Acetaminophen 1 each 01/29/20 20:40 Hydrocodone/Apap 5-325mg 1 Each Tab PO Q6HR PRN Pain Alprazolam 0.25 mg 01/29/20 20:40 Alprazolam 0.25 Mg Tab PO TID PRN Anxiety Amlodipine Besylate 5 mg 01/30/20 21:00 Amlodipine 5 Mg Tab PO BID LUZ ELENA Heparin Sodium (Porcine) 5,000 unit 01/29/20 21:00 01/30/20 09:36 Heparin Sodium,Porcine 5,000 Unit/Ml 1 Ml Vial SQ 5,000 unit Q12HR LUZ ELENA Administration Sodium Chloride 1,000 mls @ 130 mls/hr 01/29/20 20:45 01/30/20 04:29 Saline 0.9% IV Not Given .Q7H42M LUZ ELENA Labetalol HCl 200 mg 01/30/20 10:00 01/30/20 11:35 Labetalol 200 Mg Tab PO 200 mg BID LUZ ELENA Administration Lisinopril 20 mg 01/30/20 09:00 01/30/20 09:36 Lisinopril 20 Mg Tab PO 20 mg DAILY LUZ ELENA Administration Morphine Sulfate 4 mg 01/29/20 10:33 Morphine Sulfate 4 Mg/Ml Syringe IV Q4HR PRN Severe Pain Naloxone HCl 0.2 mg 01/29/20 10:33 Naloxone 0.4 Mg/Ml 1 Ml Vial IV Q2M PRN Opioid Reversal Pantoprazole Sodium 40 mg 01/30/20 07:30 01/30/20 06:54 Pantoprazole 40 Mg Tablet PO 40 mg AC-[id number] LUZ ELENA Administration Temazepam 15 mg 01/29/20 20:41 Temazepam 15 Mg Cap PO HS PRN Insomnia Objective - Vital Signs Vital signs: Vital Signs Temp 97.5 F L 01/30/20 11:39 Pulse 64 01/30/20 11:39 Resp 16 01/30/20 11:39 BP 185/85 01/30/20 11:39 Pulse Ox 100 01/30/20 11:39 Intake & Output 01/29/20 01/30/20 01/30/20 18:59 06:59 18:59 Output Total 100 Balance -100 Weight 95.254 kg 95.2 kg Output: Urine 100 Other: Voiding Method Toilet Toilet # Voids 1 1 - Labs CBC & Chem 7: 01/30/20 07:48 01/30/20 07:48 Labs: Abnormal Lab Results - Last 24 Hours (Table) 01/29/20 01/30/20 01/30/20 Range/Units 08:27 07:48 07:48 Hgb 9.7 L (11.4-16.0) gm/dL Hct 33.5 L (34.0-46.0) % MCV 74.2 L (80.0-100.0) fL MCH 21.5 L (25.0-35.0) pg MCHC 29.0 L (31.0-37.0) g/dL RDW 17.4 H (11.5-15.5) % Chloride 112 H (98-107) mmol/L Calcium 11.2 H (8.4-10.2) mg/dL PTH Intact 177.6 H (14.0-72.0) pg/mL Assessment and Plan Assessment: 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 Cardiology evaluated the patient and they recommended outpatient stress test. Neurology team already been consulted and followed the recommendation. Labs and medication were reviewed.. Continue same treatment. Continue with symptomatic treatment. Resume home medication. Monitor lytes and vitals. DVT and GI prophylaxis. Further recommendationsas per clinical course of the patient DVT prophylaxis: Subcutaneous heparin GI Prophylaxis: Pepcid Prognosis is guarded
[2020-01-30] MEDS ORDERED: DEXAMETHASONE SOD PHOSPHATE 10 MG/ML 1 ML VIAL IV ONE (18:19)
[2020-01-30] MEDS ORDERED: LIDOCAINE 1% (10MG/ML) FOR IV START INTRADERMA PRN (18:19)
[2020-01-30] MEDS: LACTATED RINGERS 1,000 ML IV SCH (18:32)
--- NOTE | 2020-01-30 21:13 | P.GSCN ---
History of Present Illness Consult date: 01/30/20 Reason for Consult: bilateral hydronephrosis and bilateral ureteral and renal calculi History of present illness: Ms Calloway is 49-year-old female admitted to the hospital with chest pain and hypertension at 226/100. Denies prior history of coronary artery disease and has never been diagnosed with hypertension in the past. She underwent a CT chest/abd/pelvis, which showed severe bilateral hydronephrosis, multiple calculi within the left ureter, 6 mm right proximal stone and multiple non obstructive stones. Of note she laso has evidence of atrophic right kidney. she indicated she has hx of kidney stones in the past, denies any hx of recent kidney stones. On presentation she complained of flank pain which has resolved now. Denies any nausea/vomiting. Denies any gross hematuria. Review of Systems - Constitutional Denies fever, Denies weight loss - Cardiovascular Reports chest pain, Denies shortness of breath - Respiratory Denies cough, Denies 7 - Gastrointestinal Reports as per HPI, Denies nausea, Denies vomiting - Genitourinary Genitourinary: Reports flank pain, Reports kidney stones, Denies dysuria - Neurological Denies headaches, Denies syncope Past Medical History Past Medical History: No Reported History Additional Past Medical History / Comment(s): kidney stones History of Any Multi-Drug Resistant Organisms: None Reported Past Surgical History: Tubal Ligation Additional Past Surgical History / Comment(s): lithotripsy for kidney stones, tubal ligation Past Anesthesia/Blood Transfusion Reactions: No Reported Reaction Past Psychological History: No Psychological Hx Reported Smoking Status: Former smoker Past Alcohol Use History: None Reported Past Drug Use History: None Reported - Past Family History Father Family Medical History: Congestive Heart Failure (CHF), Coronary Artery Disease (CAD), Diabetes Mellitus, Myocardial Infarction (MT) Medications and Allergies Home Medications Medication Instructions Recorded Confirmed Type Aspirin/Caffeine [Anacin 400-32 mg 1 tab PO DAILY 01/29/20 01/29/20 History Tablet] Naproxen Sodium [Aleve] 660 mg PO ONCE PRN 01/29/20 01/29/20 History Allergies Allergy/AdvReac Type Severity Reaction Status Date / Time No Known Allergies Allergy Verified 01/29/20 09:13 Surgical - Exam Vital Signs Temp Pulse Resp BP Pulse Ox 98 F 70 16 226/100 99 01/29/20 07:51 01/29/20 07:51 01/29/20 07:51 01/29/20 07:51 01/29/20 07:51 - General well developed, well nourished, no distress, no pain - Eyes PERRL, normal ocular movement - Respiratory normal expansion, normal respiratory effort - Abdomen Abdomen: soft, non tender - Psychiatric oriented to time, oriented to person, oriented to place, speech is normal Results - Labs 01/30/20 07:48 01/30/20 07:48 Abnormal Lab Results - Last 24 Hours (Table) 01/30/20 01/30/20 Range/Units 07:48 07:48 Hgb 9.7 L (11.4-16.0) gm/dL Hct 33.5 L (34.0-46.0) % MCV 74.2 L (80.0-100.0) fL MCH 21.5 L (25.0-35.0) pg MCHC 29.0 L (31.0-37.0) g/dL RDW 17.4 H (11.5-15.5) % Chloride 112 H (98-107) mmol/L Calcium 11.2 H (8.4-10.2) mg/dL Diabetes panel 01/30/20 Range/Units 07:48 Sodium 139 (137-145) mmol/L Potassium 3.9 (3.5-5.1) mmol/L Chloride 112 H (98-107) mmol/L Carbon Dioxide 22 (22-30) mmol/L BUN 13 (7-17) mg/dL Creatinine 0.65 (0.52-1.04) mg/dL Glucose 98 (74-99) mg/dL Calcium 11.2 H (8.4-10.2) mg/dL Calcium panel 01/30/20 Range/Units 07:48 Calcium 11.2 H (8.4-10.2) mg/dL Pituitary panel 01/30/20 Range/Units 07:48 Sodium 139 (137-145) mmol/L Potassium 3.9 (3.5-5.1) mmol/L Chloride 112 H (98-107) mmol/L Carbon Dioxide 22 (22-30) mmol/L BUN 13 (7-17) mg/dL Creatinine 0.65 (0.52-1.04) mg/dL Glucose 98 (74-99) mg/dL Calcium 11.2 H (8.4-10.2) mg/dL Adrenal panel 01/30/20 Range/Units 07:48 Sodium 139 (137-145) mmol/L Potassium 3.9 (3.5-5.1) mmol/L Chloride 112 H (98-107) mmol/L Carbon Dioxide 22 (22-30) mmol/L BUN 13 (7-17) mg/dL Creatinine 0.65 (0.52-1.04) mg/dL Glucose 98 (74-99) mg/dL Calcium 11.2 H (8.4-10.2) mg/dL Assessment and Plan Assessment: 49 yo admitted with uncontrolled BP, CT showed bilateral hydronephrosis multiple ureteral and ureteral stone bilaterally. Evidence of hypercalcemia. Discussed with her given her significant stone burden she will require multiple surgeries to address her stone burden, she has multiple large stone within the left ureter and additional non-obstructing stones, she also has 7 mm right proximal stone and multiple non-obstructing stones. Discussed with her she will require staged ureteroscopy to address her bilateral stones. Will plan on proceeding with bilateral stent placement tomorrow, will attempt to do a left ureteroscopy at same time. Plan: -NPO past MN -OR tomorrow for bilateral stent placement and possible left ureteroscopy with holmium laser -Check PTH given her hyperCa
[2020-01-30] MEDS: amLODIPine 5 MG TAB PO SCH (21:43)
--- NOTE | 2020-01-30 23:50 | US ---
EXAMINATION TYPE: US renals and bladder DATE OF EXAM: 01/30/2020 COMPARISON: CT CLINICAL HISTORY: obstructive uropathy . Obstructive uropathy. Hx lithotripsy 14 years ago. EXAM MEASUREMENTS: Right Kidney: 15.0 x 8.1 x 6.8 cm Left Kidney: 13.5 x 7.4 x 7.8 cm Right Kidney: Measures enlarged. Anechoic areas seen throughout right kidney. Largest areas measured: Upper pole: 6.1 x 5.8 x 4.0 cm. Mid pole : 4.1 x 5.3 x 4.5 cm. Lower pole: 4.4 x 4.5 x 5.3 cm. These areas could possibly connect and represent hydronephrosis throughout the kidney. Left Kidney: Measures enlarged. Hydronephrosis seen as anechoic connecting areas are visualized. Two hyperechoic foci seen: #1- 0.8 x 0.9 x 0.6 cm. #2- 0.8 x 0.7 x 0.5 cm. Bladder: Internal echoes seen versus artifact. Bladder wall appears to be thickened measurin.49 c m. Bilateral Jets seen: No IMPRESSION: Moderate left hydronephrosis. Bilateral enlarged kidneys. Right renal cortical cysts. Right side hydr onephrosis is probably present. No evidence of a solid renal mass.
[2020-01-31] MEDS: SODIUM CHLORIDE 0.9% 1,000 ML IV SCH ×4 (01:45→22:08)
[2020-01-31] MEDS: PANTOPRAZOLE 40 MG TABLET PO SCH (06:22)
[2020-01-31 08:12] LABS: Anisocytosis Slight; Basophils % (A) 0 %; Eosinophils % (A) 0 %; HGB 9.4 gm/dL (11.4-16.0); Hypochromasia Marked; Lymphocytes % (A) 11 %; MCH 21.5 pg (25.0-35.0); MCHC 28.6 g/dL (31.0-37.0); MCV 75.2 fL (80.0-100.0); Mean Platelet Volume 8.4; Microcytosis Slight; Monocytes # (A) 0.3 k/uL (0-1.0); Monocytes % (A) 4 %; Neutrophils % (A) 85 %; Platelet Count 342 k/uL (150-450); RBC 4.38 m/uL (3.80-5.40); RDW 17.2 % (11.5-15.5); WBC 9.5 k/uL (3.8-10.6)
[2020-01-31 08:15] LABS: African American GFR (CKD) >90 (>60 ml/min/1.73 sqM); Anion Gap 3 mmol/L; Blood Urea Nitrogen 17 mg/dL (7-17); Calcium 11.4 mg/dL (8.4-10.2); Carbon Dioxide 20 mmol/L (22-30); Chloride 116 mmol/L (98-107); Glucose 108 mg/dL (74-99); Non-African American GFR(CKD) >90 (>60 ml/min/1.73 sqM); Potassium 4.7 mmol/L (3.5-5.1); Sodium 139 mmol/L (137-145)
[2020-01-31] MEDS: HEPARIN SODIUM,PORCINE 5,000 UNIT/ML 1 ML VIAL SQ SCH ×2 (09:13→22:09)
[2020-01-31] MEDS: amLODIPine 5 MG TAB PO SCH ×2 (09:24→22:06)
[2020-01-31] MEDS: LABETALOL 200 MG TAB PO SCH ×2 (09:24→22:06)
[2020-01-31] MEDS: lisinopriL 20 MG TAB PO SCH (09:25)
--- NOTE | 2020-01-31 10:09 | P.PN ---
Subjective This is a pleasant 49 years old female with no significant past medical history. Presents with left flank pain and chest pain. Her pains are resolved today and directed as 0/10 both in her chest and her flank. Also patient denies any upper respiratory symptoms. She denies UTI symptoms like no dysuria or change in frequency or hesitancy or urgency. No abdominal pain. No nausea vomiting. Vitals are stable and patient is afebrile. Patient is still hypertensive. Blood pressure 185/85. Blood pressure medication when was adjusted by cardiol ogy team Labs looks unremarkable including CBC, INR, d-dimer is negative as 0.31, unremarkable BMP and liver enzymes. Troponins are negative 3 with less than 0.012. Urinalysis showing mild hematuria Thoracic aortic CAT scan showing no thoracic aneurysm no PE, severe hydronephrosis and hydroureter bilaterally with 5 x 7 mm obstructing calculus of the right ureteropelvic junction and numerous obstructing left ureteral calculi X-ray: No acute process. Echocardiogram: Ejection fraction 55-60%. 01/31/2020 Patient is asymptomatic today, no chest pain, no flank pain or abdominal pain, no urinary symptoms. Patient did not notice any stone passing with a urine she says that her voiding habits is normal [employer]cher recommended [facility]'s as an outpatient. Blood pressure is better controlled after medication adjusted. Urologist recommended bilateral nephrostomy tube placement today. And workup for hypercalcemia , consult nephrology team CONSTITUTIONAL: No fever, no malaise, no fatigue. HEENT: No recent visual problems or hearing problems. Denied any sore throat. CARDIOVASCULAR: No orthopnea, PND, no palpitations, no syncope. PULMONARY: No shortness of breath, no cough, no hemoptysis. GASTROINTESTINAL: No diarrhea, no nausea, no vomiting, no abdominal pain. Normoactive bowel sounds. NEUROLOGICAL: No headaches, no weakness, no numbness. HEMATOLOGICAL: Denies any bleeding or petechiae. Active Medications Generic Name Dose Route Start Last Admin Trade Name Freq PRN Reason Stop Dose Admin Acetaminophen 650 mg 01/29/20 10:33 Acetaminophen Tab 325 Mg Tab PO Q6HR PRN Mild Pain or Fever > 100.5 Hydrocodone Bitart/Acetaminophen 1 each 01/29/20 20:40 Hydrocodone/Apap 5-325mg 1 Each Tab PO Q6HR PRN Pain Alprazolam 0.25 mg 01/29/20 20:40 Alprazolam 0.25 Mg Tab PO TID PRN Anxiety Amlodipine Besylate 5 mg 01/30/20 21:00 01/31/20 09:24 Amlodipine 5 Mg Tab PO 5 mg BID LUZ ELENA Administration Heparin Sodium (Porcine) 5,000 unit 01/29/20 21:00 01/31/20 09:13 Heparin Sodium,Porcine 5,000 Unit/Ml 1 Ml Vial SQ Not Given Q12HR LUZ ELENA Sodium Chloride 1,000 mls @ 130 mls/hr 01/29/20 20:45 01/31/20 05:12 Saline 0.9% IV Not Given .Q7H42M LUZ ELENA Lactated Ringer's 1,000 mls @ 20 mls/hr 01/30/20 18:30 01/30/20 18:32 Lactated Ringers IV Not Given .Q24H LUZ ELENA Ceftriaxone Sodium 1 gm/ 50 mls @ 100 mls/hr 01/30/20 20:45 01/30/20 21:39 Sodium Chloride IVPB 100 mls/hr Q24H LUZ ELENA Administration Labetalol HCl 200 mg 01/30/20 10:00 01/31/20 09:24 Labetalol 200 Mg Tab PO 200 mg BID LUZ ELENA Administration Lidocaine HCl 0.1 ml 01/30/20 18:19 Lidocaine 1% (10mg/Ml) For Iv Start INTRADERMA PER PROTOCOL PRN IV Start Lisinopril 20 mg 01/30/20 09:00 01/31/20 09:25 Lisinopril 20 Mg Tab PO 20 mg DAILY LUZ ELENA Administration Morphine Sulfate 4 mg 01/29/20 10:33 Morphine Sulfate 4 Mg/Ml Syringe IV Q4HR PRN Severe Pain Naloxone HCl 0.2 mg 01/29/20 10:33 Naloxone 0.4 Mg/Ml 1 Ml Vial IV Q2M PRN Opioid Reversal Pantoprazole Sodium 40 mg 01/30/20 07:30 01/31/20 06:22 Pantoprazole 40 Mg Tablet PO 40 mg AC-BRKFST LUZ ELENA Administration Temazepam 15 mg 01/29/20 20:41 Temazepam 15 Mg Cap PO HS PRN Insomnia Objective - Vital Signs Vital signs: Vital Signs Temp 96.7 F L 01/31/20 07:39 Pulse 80 01/31/20 08:27 Resp 14 01/31/20 07:58 BP 145/71 01/31/20 08:27 Pulse Ox 97 01/31/20 07:39 Intake & Output 01/30/20 01/31/20 01/31/20 18:59 06:59 18:59 Intake Total 2800 100 0 Output Total 100 Balance 2700 100 0 Weight 96.7 kg Intake: Intake, IV Titration 1560 100 Amount Sodium Chloride 0.9% 1, 1560 000 ml @ 130 mls/hr IV . Q7H42M LUZ ELENA Rx#:[id number] cefTRIAXone 1 gm In 100 Sodium Chloride 0.9% 50 ml @ 100 mls/hr IVPB Q24H LUZ ELENA Rx#:[id number] Oral 1240 0 Output: Urine 100 Other: Voiding Method Toilet Toilet # Voids 1 1 # Bowel Movements 0 - Exam GENERAL: The patient is alert and oriented x3, not in any acute distress. Well developed, well nourished. HEENT: Pupils are round and equally reacting to light. EOMI. No scleral icterus. No conjunctival pallor. Normocephalic, atraumatic. No pharyngeal erythema. No thyromegaly. CARDIOVASCULAR: S1 and S2 present. No murmurs, rubs, or gallops. PULMONARY: Chest is clear to auscultation, no wheezing or crackles. ABDOMEN: Soft, nontender, nondistended, normoactive bowel sounds. No palpable organomegaly. MUSCULOSKELETAL: No joint swelling or deformity. EXTREMITIES: No cyanosis, clubbing, or pedal edema. NEUROLOGICAL: Gross neurological examination did not reveal any focal deficits. SKIN: No rashes. no petechiae. 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 Cardiology e valuated the patient and they recommended outpatient stress test. urology team are taken the patient for the OR for nephrostomy tube on both sides. Nephrology consult for hypercalcemia. Monitor blood pressure Labs and medication were reviewed.. Continue same treatment. Continue with symptomatic treatment. Resume home medication. Monitor lytes and vitals. DVT and GI prophylaxis. Further recommendationsas per clinical course of the patient DVT prophylaxis: Subcutaneous heparin GI Prophylaxis: Pepcid Prognosis is guarded
--- NOTE | 2020-01-31 10:13 | P.PN ---
Subjective Progress Note Date: 01/31/20 Principal diagnosis: bilateral hydronephrosis No acute overnight event, pain controlled, denies any N/V Objective - Vital Signs Vital signs: Vital Signs Temp 96.7 F L 01/31/20 07:39 Pulse 80 01/31/20 08:27 Resp 14 01/31/20 07:58 BP 145/71 01/31/20 08:27 Pulse Ox 97 01/31/20 07:39 Intake & Output 01/30/20 01/31/20 01/31/20 18:59 06:59 18:59 Intake Total 2800 100 0 Output Total 100 Balance 2700 100 0 Weight 96.7 kg Intake: Intake, IV Titration 1560 100 Amount Sodium Chloride 0.9% 1, 1560 000 ml @ 130 mls/hr IV . Q7H42M LUZ ELENA Rx#:[id number] cefTRIAXone 1 gm In 100 Sodium Chloride 0.9% 50 ml @ 100 mls/hr IVPB Q24H LUZ ELENA Rx#:[id number] Oral 1240 0 Output: Urine 100 Other: Voiding Method Toilet Toilet # Voids 1 1 # Bowel Movements 0 - Constitutional General appearance: Present: average body habitus, no acute distress - EENT Eyes: Present: EOMI - Psychiatric Psychiatric: Present: A&O x's 3, appropriate affect - Labs CBC & Chem 7: 01/31/20 07:27 01/31/20 07:27 Labs: Abnormal Lab Results - Last 24 Hours (Table) 01/31/20 01/31/20 Range/Units 07:27 07:27 Hgb 9.4 L (11.4-16.0) gm/dL Hct 33.0 L (34.0-46.0) % MCV 75.2 L (80.0-100.0) fL MCH 21.5 L (25.0-35.0) pg MCHC 28.6 L (31.0-37.0) g/dL RDW 17.2 H (11.5-15.5) % Neutrophils # 8.0 H (1.3-7.7) k/uL Chloride 116 H (98-107) mmol/L Carbon Dioxide 20 L (22-30) mmol/L Glucose 108 H (74-99) mg/dL Calcium 11.4 H (8.4-10.2) mg/dL Assessment and Plan Assessment: 49 yo admitted with uncontrolled BP, CT showed bilateral hydronephrosis multiple ureteral and ureteral stone bilaterally. Evidence of hypercalcemia. Discussed with her given her significant stone burden she will require multiple surgeries to address her stone burden, she has multiple large stone within the left ureter and additional non-obstructing stones, she also has 7 mm right proximal stone and multiple non-obstructing stones. Discussed with her she will require staged ureteroscopy to address her bilateral stones. Will plan on proceeding with bilateral stent placement tomorrow, will attempt to do a left ureteroscopy at same time. Plan: -OR for bilateral stent placement and possible left ureteroscopy with holmium laser -Check PTH given her hyperCa
--- NOTE | 2020-01-31 10:38 | P.PN ---
Subjective HISTORY OF PRESENTING ILLNESS This is a pleasant 49-year-old female past medical history significant for kidney stones. She denies prior history of coronary artery disease and has never been diagnosed with hypertension in the past. She is seen and examined resting comfortably in bed in no acute distress. She is scheduled to undergo u reteral stent placement today with urology. Echocardiogram revealed preserved LV systolic function with normal ejection fraction mild aortic stenosis. No evidence of wall motion abnormalities. Blood pressure 145/71 heart rate 80 afebrile maintaining oxygen saturation on room air. PHYSICAL EXAMINATION CONSTITUTIONAL: No apparent distress. HEENT: Head is normocephalic. Pupils are equal, round. Sclerae anicteric. Mucous membranes of the mouth are moist. No JVD. No carotid bruit. CHEST EXAMINATION: Lungs are clear to auscultation. No chest wall tenderness is noted on palpation or with deep breathing. HEART EXAMINATION: Regular rate and rhythm. S1, S2 heard. No murmurs, gallops or rub. EXTREMITIES: 2+ peripheral pulses, no lower extremity edema and no calf tenderness. ASSESSMENT Chest pain, atypical for angina. Hypertensive emergency Bilateral renal calculi with hydronephrosis PLAN Blood pressure is much improved on current regimen. Recommend outpatient stress testing. We will follow along as needed, please feel free to call with further questions or concerns. Nurse Practitioner note has been reviewed, I agree with a documented findings and plan of care. Patient was seen and examined. Objective - Vital Signs Vital signs: Vital Signs Temp 96.7 F L 01/31/20 07:39 Pulse 80 01/31/20 08:27 Resp 14 01/31/20 07:58 BP 145/71 01/31/20 08:27 Pulse Ox 97 01/31/20 07:39 Intake & Output 01/30/20 01/31/20 01/31/20 18:59 06:59 18:59 Intake Total 2800 100 0 Output Total 100 Balance 2700 100 0 Weight 96.7 kg Intake: Intake, IV Titration 1560 100 Amount Sodium Chloride 0.9% 1, 1560 000 ml @ 130 mls/hr IV . Q7H42M [facility] Rx#:[id number] cefTRIAXone 1 gm In 100 Sodium Chloride 0.9% 50 ml @ 100 mls/hr IVPB Q24H [facility] Rx#:[id number] Oral 1240 0 Output: Urine 100 Other: Voiding Method Toilet Toilet # Voids 1 1 # Bowel Movements 0 - Labs CBC & Chem 7: 01/31/20 07:27 01/31/20 07:27 Labs: Abnormal Lab Results - Last 24 Hours (Table) 01/31/20 01/31/20 Range/Units 07:27 07:27 Hgb 9.4 L (11.4-16.0) gm/dL Hct 33.0 L (34.0-46.0) % MCV 75.2 L (80.0-100.0) fL MCH 21.5 L (25.0-35.0) pg MCHC 28.6 L (31.0-37.0) g/dL RDW 17.2 H (11.5-15.5) % Neutrophils # 8.0 H (1.3-7.7) k/uL Chloride 116 H (98-107) mmol/L Carbon Dioxide 20 L (22-30) mmol/L Glucose 108 H (74-99) mg/dL Calcium 11.4 H (8.4-10.2) mg/dL
[2020-01-31] MEDS ORDERED: SODIUM CHLORIDE 0.9% 250 ML with PAMIDRONATE 60 MG IV ONE ×2 (10:47)
--- NOTE | 2020-01-31 10:54 | P.NPCON ---
History of Present Illness - Reason for Consult acute renal failure - History of Present Illness Reason for consultation: Hypercalcemia History of present illness: Patient is a 49-year-old female seen in renal consultation for hypercalcemia. Calcium level was 11.2 on admission and 11.4 today. She is maintained on normal saline at 1 30 mL an hour. She presented to the hospital with left-sided flank pain. She is noted to have bilateral hydronephrosis and is scheduled to undergo bilateral ureteral stent placement today. She is noted to have bilateral renal calculi. Denies any hematuria or dysuria. No fever or chills. No vomiting or diarrhea. Denies regular use of nonsteroidals. Denies family history of polycystic kidney disease. Patient states she had one cousin on hemodialysis due to diabetic kidney disease. She has history of high blood pressure which is currently stable. Patient states her last kidney stone was about 14 years ago and required lithotripsy. She denies passing any kidney stones in the last few years. She denies history of urinary tract infections. No edema. Patient denies any personal history of malignancy. She is not on any thiazide diuretics. Denies eating excessive dairy. Vital signs are stable. General: The patient appeared well nourished and normally developed. HEENT: Head exam is unremarkable. Neck is without jugular venous distension. LUNGS: Lungs are clear to auscultation and percussion. Breath sounds decreased. HEART: Rate and Rhythm are regular. ABDOMEN: Soft, nontender. EXTREMITITES: No clubbing, cyanosis, or edema. Past Medical History Past Medical History: No Reported History Additional Past Medical History / Comment(s): kidney stones History of Any Multi-Drug Resistant Organisms: None Reported Past Surgical History: Tubal Ligation Additional Past Surgical History / Comment(s): lithotripsy for kidney stones, tubal ligation Past Anesthesia/Blood Transfusion Reactions: No Reported Reaction Past Psychological History: No Psychological Hx Reported Smoking Status: Former smoker Past Alcohol Use History: None Reported Past Drug Use History: None Reported - Past Family History Father Family Medical History: Congestive Heart Failure (CHF), Coronary Artery Disease (CAD), Diabetes Mellitus, Myocardial Infarction ([place]) Medications and Allergies Home Medications Medication Instructions Recorded Confirmed Type Aspirin/Caffeine [Anacin 400-32 mg 1 tab PO DAILY 01/29/20 01/29/20 History Tablet] Naproxen Sodium [Aleve] 660 mg PO ONCE PRN 01/29/20 01/29/20 History Allergies Allergy/AdvReac Type Severity Reaction Status Date / Time No Known Allergies Allergy Verified 01/29/20 09:13 Physical Exam Vitals: Vital Signs Temp Pulse Resp BP Pulse Ox 01/31/20 08:27 80 145/71 01/31/20 07:58 87 14 01/31/20 07:39 96.7 F L 87 14 134/71 97 01/31/20 04:58 97.4 F L 79 16 116/60 97 01/31/20 00:00 98.0 F 77 16 142/83 96 01/30/20 20:00 98.2 F 72 18 150/85 100 01/30/20 16:00 97.5 F L 66 16 125/69 99 01/30/20 12:00 64 16 01/30/20 11:39 97.5 F L 64 16 185/85 100 Intake and Output 01/30/20 01/31/20 01/31/20 22:59 06:59 14:59 Intake Total 2680 100 0 Balance 2680 100 0 Intake: Intake, IV Titration 1560 100 Amount Sodium Chloride 0.9% 1, 1560 000 ml @ 130 mls/hr IV . Q7H42M [facility] Rx#:[id number] cefTRIAXone 1 gm In 100 Sodium Chloride 0.9% 50 ml @ 100 mls/hr IVPB Q24H [facility] Rx#:[id number] Oral 1120 0 Other: Voiding Method Toilet Toilet # Voids 1 1 # Bowel Movements 0 Weight 96.7 kg Results - Lab Results Most recent lab results Calcium 11.4 mg/dL (8.4-10.2) H 01/31/20 07:27 Magnesium 1.7 mg/dL (1.6-2.3) 01/29/20 08:27 01/31/20 07:27 01/31/20 07:27 Assessment and Plan Plan: Assessment: 1. Hypercalcemia parathyroid mediated. Her PTH level is noted to be elevated at 177.6. 2. Bilateral hydronephrosis secondary to obstructive renal calculi. 3. Metabolic acidosis secondary to IV fluids. 4. Benign hypertension. Controlled. 5. Bilateral nephrolithiasis. This may be secondary to primary hyperparathyroidism. No evidence of medullary sponge kidney. Plan: Maintain normal saline at 130 mL an hour. Check parathyroid nuclear scan. Check electrophoresis studies, vitamin D level and LUIS FERNANDO level. 60 mg IV pamidronate once today. Repeat electrolytes in the morning. Check urine calcium level. Thank you for the consultation. I will continue to follow the patient with you during her hospital stay.
[2020-01-31] MEDS: LACTATED RINGERS 1,000 ML IV SCH ×2 (15:37→19:31)
[2020-01-31] MEDS ORDERED: ONDANSETRON 4 MG/2 ML VIAL ONE (15:44)
[2020-01-31] MEDS ORDERED: ONDANSETRON 4 MG/2 ML VIAL IVP ONE (16:00)
[2020-01-31] MEDS ORDERED: DEXAMETHASONE SOD PHOSPHATE 10 MG/ML 1 ML VIAL IV ONE (16:02)
[2020-01-31] MEDS ORDERED: SCOPOLAMINE 1.5MG/72HR PATCH TRANSDERM ONE (16:05)
[2020-01-31] MEDS ORDERED: ePHEDrine SULFATE/0.9% NACL/PF 50 MG/5 ML SYRINGE IV ONE (19:27)
[2020-01-31] MEDS ORDERED: PROPOFOL 10 MG/ML 20 ML VIAL IV ONE (19:27)
[2020-01-31] MEDS ORDERED: KETOROLAC 15 MG/ML 1 ML VIAL ONE (19:27)
[2020-01-31] MEDS ORDERED: fentaNYL (PF) 50 MCG/ML 2 ML AMP ONE (19:27)
[2020-01-31] MEDS ORDERED: MIDAZOLAM 2 MG/2 ML VIAL ONE (19:27)
[2020-01-31] MEDS ORDERED: SUCCINYLCHOLINE CHLORIDE 100 MG/5 ML SYR IV ONE (19:27)
[2020-01-31] MEDS ORDERED: LIDOCAINE 1% INJ 10MG/ML (20 ML MDV) ONE (19:27)
[2020-01-31] MEDS ORDERED: SODIUM CHLORIDE 0.9% 50 ML with ceFAZolin 2,000 MG IV ONE ×2 (19:48)
[2020-01-31] MEDS ORDERED: IOPAMIDOL-370 50ML BTL IRRIGATION ONE (19:51)
[2020-01-31] MEDS ORDERED: LACTATED RINGERS 1,000 ML IV ONE (20:18)
--- NOTE | 2020-01-31 21:06 | P.OP ---
Date of Procedure: 01/31/20 Preoperative Diagnosis: Bilateral ureteral calculi Postoperative Diagnosis: same Procedure(s) Performed: Cystoscopy, bilateral retrograde pyelogram, stent placement, left ureteroscopy, holmium laser lithotripsy, stone basketing Implants: 6-[place] by 26 cm stent bilaterally Anesthesia: RAFAEL Surgeon: Sabas Crawley Estimated Blood Loss (ml): 5 Pathology: other (Left ureteral calculi) Condition: stable Disposition: PACU Indications for Procedure: 49 yo admitted with uncontrolled BP, CT showed bilateral hydronephrosis multiple ureteral and ureteral stone bilaterally. Evidence of hypercalcemia. Discussed with her given her significant stone burden she will require multiple surgeries to address her stone burden, she has multiple large stone within the left ureter and additional non-obstructing stones, she also has 7 mm right proximal stone and multiple non-obstructing stones. Discussed with her she will require staged ureteroscopy to address her bilateral stones. Will plan on proceeding with bilateral stent placement , will attempt to do a left ureteroscopy at same time. Operative Findings: Multiple stones within the left ureter. Impacted stone at the right proximal ureter Description of Procedure: Patient was brought to the operating room, general anesthesia was induced. She was prepped and draped in sterile fashion and placed in dorsal lithotomy position. Cystoscopy fitted with 21 sheath was inserted per urethra. cystoscopy was performed showed no abnormality within the bladder. The right ureteral orifice was intubated with a 5-[place] open-ended catheter. Retrograde pyelogram was performed, which showed minimal contrast going past the proximal stone. Of note the stone was radiopaque. At this time a sensor wire was advanced through the catheter. Multiple attempts were required, I was eventually able to advance the wire past the stone. At this time the ureteral catheter was passed over the wire and a retrograde Polygram was performed to confirm that the wire was indeed in the collecting system. Retrograde pyelogram did confirm that, of note she had severe hydronephrosis on the right side. At this time the wire was advanced through the catheter the catheter was removed the wire in place. Next a 6- [place] by 26 cm stent was passed over the wire, the proximal curl was on fluoroscopy and the distal curl was visualized using the cystoscope. At this time attention was carried to the left side which was intubated with 6- [place] open-ended catheter, retrograde Polygram was performed which showed minimal contrast going into the ureter. At this time I attempted to advance a wire through the catheter but resistance was met at the distal ureter. At this time the cystoscope was withdrawn and the semirigid ureteroscope was inserted. Stone was impacted at the distal ureter this was carefully lasered using the holmium laser. Once the stone was fragmented, I was able to advance the scope past the impact site, there was ureteral narrowing at the area of impact site but I was able to advance the scope past it. At this time multiple stones were encountered proximal to the impacted stone. The stones were further fragmented into smaller pieces. Some of the sizable fragments were removed and sent to pathology. Of note given the narrowing in the distal ureter minimal basketing was performed. At this time the ureteroscope was advanced to the mid ureter additional stones were encountered which were fragmented using the holmium laser. At this time the ureteroscope was advanced all the way up to the proximal ureter and no additional stones were encountered. At this time a sensor wire was advanced through the scope and into the collecting system. Pullback ureteroscopy was performed showed no injury to the ureter or any sizable ureteral fragments. At this time a 6-[place] by 26 cm stent was passed over the wire. The proximal curl was visualized on fluoroscopy and distal curl was was using the cystoscope. The bladder was emptied and the case. The patient thought the procedure well was taken to PACU in stable condition
[2020-01-31 21:36] LABS: Protein, Total 6.2 g/dL (6.2-8.2)
--- NOTE | 2020-01-31 22:15 | FL ---
EXAMINATION TYPE: FL urography retrograde DATE OF EXAM: 01/31/2020 CLINICAL HISTORY: Nonobstructing bilateral ureter calculi. TECHNIQUE: Fluoroscopy. COMPARISON: CTA study 2 days earlier. FINDINGS: Fluoroscopic guidance was provided during cystoscopy with bilateral ureter stent insertion procedure performed by Dr. Crawley. A total of 82 seconds of fluoroscopic time was utilized during t he procedure and single spot fluoroscopic intraoperative image is acquired. Single image acquired alyssa ws proximal portion of bilateral distal ureter stents. IMPRESSION: As Above.
[2020-01-31] MEDS: HYDROcodone/APAP 5-325MG 1 EACH TAB PO PRN (22:21)
[2020-02-01] MEDS: SODIUM CHLORIDE 0.9% 1,000 ML IV SCH ×2 (05:19→10:51)
[2020-02-01] MEDS: PANTOPRAZOLE 40 MG TABLET PO SCH (06:36)
[2020-02-01] MEDS: LABETALOL 200 MG TAB PO SCH ×2 (09:08→20:25)
[2020-02-01] MEDS: lisinopriL 20 MG TAB PO SCH (09:08)
[2020-02-01] MEDS: amLODIPine 5 MG TAB PO SCH ×2 (09:08→20:25)
[2020-02-01] MEDS: HEPARIN SODIUM,PORCINE 5,000 UNIT/ML 1 ML VIAL SQ SCH ×2 (09:08→20:25)
[2020-02-01 09:33] LABS: Angiotensin-1 Converting Enz. 27 U/L (8-52)
[2020-02-01 09:45] LABS: African American GFR (CKD) >90 (>60 ml/min/1.73 sqM); Anion Gap 5 mmol/L; Blood Urea Nitrogen 18 mg/dL (7-17); Calcium 11.5 mg/dL (8.4-10.2); Carbon Dioxide 22 mmol/L (22-30); Chloride 111 mmol/L (98-107); Glucose 93 mg/dL (74-99); Non-African American GFR(CKD) 82 (>60 ml/min/1.73 sqM); Potassium 4.4 mmol/L (3.5-5.1); Sodium 138 mmol/L (137-145)
[2020-02-01 09:52] LABS: Anisocytosis Slight; Basophils % (A) 0 %; Eosinophils % (A) 0 %; HCT 33.1 % (34.0-46.0); HGB 9.2 gm/dL (11.4-16.0); Hypochromasia Marked; Lymphocytes # (A) 1.4 k/uL (1.0-4.8); Lymphocytes % (A) 12 %; MCH 21.3 pg (25.0-35.0); MCHC 27.9 g/dL (31.0-37.0); MCV 76.3 fL (80.0-100.0); Mean Platelet Volume 8.9; Microcytosis Slight; Monocytes # (A) 0.4 k/uL (0-1.0); Monocytes % (A) 4 %; Neutrophils # (A) 9.1 k/uL (1.3-7.7); Neutrophils % (A) 83 %; Platelet Count 380 k/uL (150-450); RBC 4.35 m/uL (3.80-5.40); RDW 17.2 % (11.5-15.5)
--- NOTE | 2020-02-01 10:07 | P.PN ---
Subjective This is a pleasant 49 years old female with no significant past medical history. Presents with left flank pain and chest pain. Her pains are resolved today and directed as 0/10 both in her chest and her flank. Also patient denies any upper respiratory symptoms. She denies UTI symptoms like no dysuria or change in frequency or hesitancy or urgency. No abdominal pain. No nausea vomiting. Vitals are stable and patient is afebrile. Patient is still hypertensive. Blood pressure 185/85. Blood pressure medication when was adjusted by cardiol ogy team Labs looks unremarkable including CBC, INR, d-dimer is negative as 0.31, unremarkable BMP and liver enzymes. Troponins are negative 3 with less than 0.012. Urinalysis showing mild hematuria Thoracic aortic CAT scan showing no thoracic aneurysm no PE, severe hydronephrosis and hydroureter bilaterally with 5 x 7 mm obstructing calculus of the right ureteropelvic junction and numerous obstructing left ureteral calculi X-ray: No acute process. Echocardiogram: Ejection fraction 55-60%. 01/31/2020 Patient is asymptomatic today, no chest pain, no flank pain or abdominal pain, no urinary symptoms. Patient did not notice any stone passing with a urine she says that her voiding habits is normal Dobby Loom Weaver recommended [facility] as an outpatient. Blood pressure is better controlled after medication adjusted. Urologist recommended bilateral nephrostomy tube placement today. And workup for hypercalcemia , consult nephrology team 02/01/2020 This is a pleasant healthy 49 years old female who presents with flank pain found to be secondary to bilateral hydronephrosis secondary to bilateral renal stones status post bilateral nephrostomy tube placement yesterday and today is postoperative day #1. Looks like her renal problem is secondary to her hypercalcemia secondary to hyperparathyroidism. Which is significantly elevated. Parathyroid scan is ordered and is pending. Also patient has bilateral pulmonary nodules and we are going to consult pulmonary service today. Patient blood pressure is 133/71, Dobby Loom Weaver already sign of the case and they recommended outpatient stress test once her hypertensive urgency is controlled and his renal problem resolved. Currently rest of vitals are stable. BMP is unremarkable except for, some of 11.5. Patient is followed closely by several consultants including urology, nephrology, cardiology and pulmonology Continue with normal saline at 30 mL per hour plus ceftriaxone as patient is passing a stone today with some dysuria CONSTITUTIONAL: No fever, no malaise, no fatigue. HEENT: No recent visual problems or hearing problems. Denied any sore throat. CARDIOVASCULAR: No orthopnea, PND, no palpitations, no syncope. PULMONARY: No shortness of breath, no cough, no hemoptysis. GASTROINTESTINAL: No diarrhea, no nausea, no vomiting, no abdominal pain. Normoactive bowel sounds. NEUROLOGICAL: No headaches, no weakness, no numbness. HEMATOLOGICAL: Denies any bleeding or petechiae. Active Medications Generic Name Dose Route Start Last Admin Trade Name Freq PRN Reason Stop Dose Admin Acetaminophen 650 mg 01/29/20 10:33 Acetaminophen Tab 325 Mg Tab PO Q6HR PRN Mild Pain or Fever > 100.5 Hydrocodone Bitart/Acetaminophen 1 each 01/29/20 20:40 01/31/20 22:21 Hydrocodone/Apap 5-325mg 1 Each Tab PO 1 each Q6HR PRN Administration Pain Alprazolam 0.25 mg 01/29/20 20:40 Alprazolam 0.25 Mg Tab PO TID PRN Anxiety Amlodipine Besylate 5 mg 01/30/20 21:00 02/01/20 09:08 Amlodipine 5 Mg Tab PO 5 mg BID [facility] Administration Heparin Sodium (Porcine) 5,000 unit 01/29/20 21:00 02/01/20 09:08 Heparin Sodium,Porcine 5,000 Unit/Ml 1 Ml Vial SQ 5,000 unit Q12HR [facility] Administration Sodium Chloride 1,000 mls @ 130 mls/hr 01/29/20 20:45 02/01/20 05:19 Saline 0.9% IV Not Given .Q7H42M [facility] Lactated Ringer's 1,000 mls @ 20 mls/hr 01/30/20 18:30 01/31/20 19:31 Lactated Ringers IV 500 mls .Q24H [facility] Administration Ceftriaxone Sodium 1 gm/ 50 mls @ 100 mls/hr 01/30/20 20:45 01/31/20 22:09 Sodium Chloride IVPB 100 mls/hr Q24H [facility] Administration Labetalol HCl 200 mg 01/30/20 10:00 02/01/20 09:08 Labetalol 200 Mg Tab PO 200 mg BID [facility] Administration Lidocaine HCl 0.1 ml 01/30/20 18:19 Lidocaine 1% (10mg/Ml) For Iv Start INTRADERMA PER PROTOCOL PRN IV Start Lisinopril 20 mg 01/30/20 09:00 02/01/20 09:08 Lisinopril 20 Mg Tab PO 20 mg DAILY [facility] Administration Morphine Sulfate 4 mg 01/29/20 10:33 Morphine Sulfate 4 Mg/Ml Syringe IV Q4HR PRN Severe Pain Naloxone HCl 0.2 mg 01/29/20 10:33 Naloxone 0.4 Mg/Ml 1 Ml Vial IV Q2M PRN Opioid Reversal Pantoprazole Sodium 40 mg 01/30/20 07:30 02/01/20 06:36 Pantoprazole 40 Mg Tablet PO 40 mg [id number] [facility] Administration Temazepam 15 mg 01/29/20 20:41 Temazepam 15 Mg Cap PO HS PRN Insomnia Objective - Vital Signs Vital signs: Vital Signs Temp 97.8 F 02/01/20 09:10 Pulse 64 02/01/20 09:10 Resp 16 02/01/20 09:10 BP 133/71 02/01/20 09:10 Pulse Ox 100 02/01/20 09:10 Intake & Output 01/31/20 02/01/20 02/01/20 18:59 06:59 18:59 Intake Total 1410 3400 240 Output Total 1602 Balance 1410 1798 240 Weight 96.615 kg Intake: IV 500 800 Intake, IV Titration 910 1520 Amount Sodium Chloride 0.9% 1, 910 1170 000 ml @ 130 mls/hr IV . Q7H42M [facility] Rx#:[id number] Sodium Chloride 0.9% 250 250 ml @ 83 mls/hr IV .Q3H1M [facility] with Pamidronate 60 mg Rx#:[id number] cefTRIAXone 1 gm In 100 Sodium Chloride 0.9% 50 ml @ 100 mls/hr IVPB Q24H [facility] Rx#:[id number] Oral 0 1080 240 Output: Urine 1600 Estimated Blood Loss 2 Other: Voiding Method Toilet Toilet # Voids 1 - Exam GENERAL: The patient is alert and oriented x3, not in any acute distress. Well developed, well nourished. HEENT: Pupils are round and equally reacting to light. EOMI. No scleral icterus. No conjunctival pallor. Normocephalic, atraumatic. No pharyngeal erythema. No thyromegaly. CARDIOVASCULAR: S1 and S2 present. No murmurs, rubs, or gallops. PULMONARY: Chest is clear to auscultation, no wheezing or crackles. ABDOMEN: Soft, nontender, nondistended, normoactive bowel sounds. No palpable organomegaly. MUSCULOSKELETAL: No joint swelling or deformity. EXTREMITIES: No cyanosis, clubbing, or pedal edema. NEUROLOGICAL: Gross neurological examination did not reveal any focal deficits. SKIN: No rashes. no petechiae. - Labs CBC & Chem 7: 02/01/20 07:40 02/01/20 07:40 Labs: Abnormal Lab Results - Last 24 Hours (Table) 01/31/20 01/31/20 Range/Units 07:27 07:27 Vitamin D 25-Hydroxy 9.2 L (30.0-100.0) ng/mL PTH Intact 206.9 H (14.0-72.0) pg/mL Assessment and Plan Assessment: Bilateral obstructive uropathy with multiple urethral colliculi, and bilateral severe hydroureter and hydronephrosis Hypercalcemia secondary to hyperparathyroidism Multiple lung nodules Hypertensive emergency, improved Chest pain Former smoker Obesity with BMI of 31 Plan: This is a pleasant 49 years old female who presents with hydronephrosis and the lateral kidney stone and uncontrolled hypertension and chest pain. Cardiology evaluated the patient and they recommended outpatient stress test. urology team are taken the patient for the OR for nephrostomy tube on both sides. Nephrology consult for hypercalcemia. Monitor blood pressure. Pending parathyroid scan. Consult pulmonary service for long nodule Labs and medication were reviewed.. Continue same treatment. Continue with sym ptomatic treatment. Resume home medication. Monitor lytes and vitals. DVT and GI prophylaxis. Further recommendationsas per clinical course of the patient DVT prophylaxis: Subcutaneous heparin GI Prophylaxis: Pepcid Prognosis is guarded
--- NOTE | 2020-02-01 10:27 | P.PN ---
Subjective Patient is seen in follow-up for hypercalcemia. Calcium level 11.5 this morning. She underwent parathyroid nuclear scan this morning. Good oral i ntake. No vomiting or diarrhea. Maintained on IV Lasix. Vital signs are stable. General: The patient appeared well nourished and normally developed. HEENT: Head exam is unremarkable. Neck is without jugular venous distension. LUNGS: Lungs are clear to auscultation and percussion. Breath sounds decreased. HEART: Rate and Rhythm are regular. First and second heart sounds normal. No murmurs, rubs or gallops. ABDOMEN: Soft, nontender. EXTREMITITES: No clubbing, cyanosis, or edema. Objective - Vital Signs Vital signs: Vital Signs Temp 97.8 F 02/01/20 09:10 Pulse 64 02/01/20 09:10 Resp 16 02/01/20 09:10 BP 133/71 02/01/20 09:10 Pulse Ox 100 02/01/20 09:10 Intake & Output 01/31/20 02/01/20 02/01/20 18:59 06:59 18:59 Intake Total 1410 3400 240 Output Total 1602 Balance 1410 1798 240 Weight 96.615 kg Intake: IV 500 800 Intake, IV Titration 910 1520 Amount Sodium Chloride 0.9% 1, 910 1170 000 ml @ 130 mls/hr IV . Q7H42M [facility] Rx#:[id number] Sodium Chloride 0.9% 250 250 ml @ 83 mls/hr IV .Q3H1M [facility] with Pamidronate 60 mg Rx#:[id number] cefTRIAXone 1 gm In 100 Sodium Chloride 0.9% 50 ml @ 100 mls/hr IVPB Q24H [facility] Rx#:[id number] Oral 0 1080 240 Output: Urine 1600 Estimated Blood Loss 2 Other: Voiding Method Toilet Toilet # Voids 1 - Labs CBC & Chem 7: 02/01/20 07:40 02/01/20 07:40 Labs: Abnormal Lab Results - Last 24 Hours (Table) 01/31/20 01/31/20 02/01/20 Range/Units 07:27 07:27 07:40 WBC 11.0 H (3.8-10.6) k/uL Hgb 9.2 L (11.4-16.0) gm/dL Hct 33.1 L (34.0-46.0) % MCV 76.3 L (80.0-100.0) fL MCH 21.3 L (25.0-35.0) pg MCHC 27.9 L (31.0-37.0) g/dL RDW 17.2 H (11.5-15.5) % Neutrophils # 9.1 H (1.3-7.7) k/uL Chloride (98-107) mmol/L BUN (7-17) mg/dL Calcium (8.4-10.2) mg/dL Vitamin D 25-Hydroxy 9.2 L (30.0-100.0) ng/mL PTH Intact 206.9 H (14.0-72.0) pg/mL 02/01/20 Range/Units 07:40 WBC (3.8-10.6) k/uL Hgb (11.4-16.0) gm/dL Hct (34.0-46.0) % MCV (80.0-100.0) fL MCH (25.0-35.0) pg MCHC (31.0-37.0) g/dL RDW (11.5-15.5) % Neutrophils # (1.3-7.7) k/uL Chloride 111 H (98-107) mmol/L BUN 18 H (7-17) mg/dL Calcium 11.5 H (8.4-10.2) mg/dL Vitamin D 25-Hydroxy (30.0-100.0) ng/mL PTH Intact (14.0-72.0) pg/mL Assessment and Plan Plan: Assessment: 1. Hypercalcemia parathyroid mediated. Her PTH level is noted to be elevated at 177.6 and 206.9 when repeated. Vitamin D low at 9.2. LUIS FERNANDO normal at 27. 2. Bilateral hydronephrosis secondary to obstructive renal calculi status post bilateral ureteral stents placed January 30. 3. Metabolic acidosis secondary to IV fluids. Better. 4. Benign hypertension. Controlled. 5. Bilateral nephrolithiasis. This may be secondary to primary hyperparathyroidism. No evidence of medullary sponge kidney. Plan: Decrease normal saline to 50 mL an hour. Follow-up parathyroid nuclear scan. Follow-up electrophoresis studies and 1,25 D3 level. Status post 60 mg IV pamidronate January 30. Repeat electrolytes in the morning. Follow-up urine calcium to creatinine ratio. Start Sensipar 30 mg once daily.
--- NOTE | 2020-02-01 10:43 | P.CNPUL ---
History of Present Illness Consult date: 02/01/20 Reason for consult: abnormal CXR/CT Chief complaint: Incidental finding abnormality on CAT scan of chest History of present illness: This is a 49-year-old female with remote history of smoking one pack a day with several years ago has smoked about 10-15 years as soon history of smoking, patient admitted to hospital with left flank pain found to have bilateral hydronephrosis in addition patient has hypercalcemia thought to be related to hyperparathyroidism workup in progress, urology and nephrology also evaluating t his patient, patient has significant microcytic anemia anemia, with a normal renal functions, on arrival She is 11.2 and now is 11.5, parathyroid hormone level is elevated 177.6 and 206 consistent with primary hyperparathyroidism vitamin D level is low of 9.2, computed tomography scan of the chest revealed that the small few millimeter to 5 mm ill-defined nodules predominantly in the bases noted, patient denies any cough fever or shortness of breath or chest pain, no weight loss night sweats or hemoptysis present, patient is status post stent placement in ureter for hydronephrosis, Review of Systems All systems: negative Past Medical History Past Medical History: No Reported History Additional Past Medical History / Comment(s): kidney stones History of Any Multi-Drug Resistant Organisms: None Reported Past Surgical History: Tubal Ligation Additional Past Surgical History / Comment(s): lithotripsy for kidney stones, tubal ligation Past Anesthesia/Blood Transfusion Reactions: No Reported Reaction Past Psychological History: No Psychological Hx Reported Smoking Status: Former smoker Past Alcohol Use History: None Reported Past Drug Use History: None Reported - Past Family History Father Family Medical History: Congestive Heart Failure (CHF), Coronary Artery Disease (CAD), Diabetes Mellitus, Myocardial Infarction ([place]) Medications and Allergies Home Medications Medication Instructions Recorded Confirmed Type Aspirin/Caffeine [Anacin 400-32 mg 1 tab PO DAILY 01/29/20 01/29/20 History Tablet] Naproxen Sodium [Aleve] 660 mg PO ONCE PRN 01/29/20 01/29/20 History Allergies Allergy/AdvReac Type Severity Reaction Status Date / Time No Known Allergies Allergy Verified 01/29/20 09:13 Physical Exam Vitals: Vital Signs Temp Pulse Pulse Resp BP Pulse Ox 02/01/20 09:10 97.8 F 64 16 133/71 100 02/01/20 04:18 97.8 F 68 16 111/58 97 02/01/20 00:44 98.0 F 61 16 108/58 98 01/31/20 22:15 64 18 128/67 96 01/31/20 22:00 98.0 F 59 L 16 159/70 100 01/31/20 21:45 98.2 F 80 16 139/76 97 01/31/20 21:29 77 16 149/72 95 01/31/20 21:15 93 16 144/72 96 01/31/20 21:01 98 16 152/78 96 01/31/20 20:54 97.9 F 90 18 152/77 97 01/31/20 15:37 97.6 F 65 16 149/80 98 01/31/20 12:00 97.3 F L 64 18 151/85 99 Intake and Output 01/31/20 02/01/20 02/01/20 22:59 06:59 14:59 Intake Total 1660 2240 240 Output Total 352 1250 Balance 1308 990 240 Intake: IV 1300 Intake, IV Titration 1520 Amount Sodium Chloride 0.9% 1, 1170 000 ml @ 130 mls/hr IV . Q7H42M [facility] Rx#:[id number] Sodium Chloride 0.9% 250 250 ml @ 83 mls/hr IV .Q3H1M ONE with Pamidronate 60 mg Rx#:[id number] cefTRIAXone 1 gm In 100 Sodium Chloride 0.9% 50 ml @ 100 mls/hr IVPB Q24H [facility] Rx#:[id number] Oral 360 720 240 Output: Urine 350 1250 Estimated Blood Loss 2 Other: Voiding Method Toilet Weight 96.615 kg - Constitutional General appearance: average body habitus, cooperative, disheveled - EENT Eyes: EOMI, PERRLA Ears: bilateral: normal - Neck Neck: normal ROM Carotids: bilateral: upstroke normal Thyroid: bilateral: normal size - Respiratory Respiratory: bilateral: CTA - Cardiovascular Rhythm: regular Heart sounds: normal: S1, S2 - Gastrointestinal General gastrointestinal: normal bowel sounds, soft - Neurologic Neurologic: CNII-XII intact - Musculoskeletal Musculoskeletal: gait normal, generalized weakness, strength equal bilaterally Results - Laboratory Findings CBC and BMP: 02/01/20 07:40 02/01/20 07:40 PT/INR, D-dimer PT 9.5 sec (9.0-12.0) 10/19/20 08:27 INR 0.9 (<1.2) 01/29/20 08:27 D-Dimer 0.31 mg/L FEU (<0.60) 01/29/20 08:27 Abnormal lab findings: Abnormal Labs 01/29/20 01/29/20 01/29/20 08:27 08:27 08:27 WBC Hgb 10.6 L Hct MCV 74.0 L MCH 21.6 L MCHC 29.2 L RDW 17.2 H Neutrophils # Sodium 135 L Chloride 111 H Carbon Dioxide 21 L BUN Glucose 102 H Calcium 11.2 H Alkaline Phosphatase 138 H Vitamin D 25-Hydroxy PTH Intact Urine Protein Trace H Urine Blood Moderate H Ur Leukocyte Esterase Trace H Urine RBC 96 H Urine Bacteria Rare H Urine Mucus Rare H 01/29/20 01/30/20 01/30/20 08:27 07:48 07:48 WBC Hgb 9.7 L Hct 33.5 L MCV 74.2 L MCH 21.5 L MCHC 29.0 L RDW 17.4 H Neutrophils # Sodium Chloride 112 H Carbon Dioxide BUN Glucose Calcium 11.2 H Alkaline Phosphatase Vitamin D 25-Hydroxy PTH Intact 177.6 H Urine Protein Urine Blood Ur Leukocyte Esterase Urine RBC Urine Bacteria Urine Mucus 01/31/20 01/31/20 01/31/20 07:27 07:27 07:27 WBC Hgb 9.4 L Hct 33.0 L MCV 75.2 L MCH 21.5 L MCHC 28.6 L RDW 17.2 H Neutrophils # 8.0 H Sodium Chloride 116 H Carbon Dioxide 20 L BUN Glucose 108 H Calcium 11.4 H Alkaline Phosphatase Vitamin D 25-Hydroxy PTH Intact 206.9 H Urine Protein Urine Blood Ur Leukocyte Esterase Urine RBC Urine Bacteria Urine Mucus 01/31/20 02/01/20 02/01/20 07:27 07:40 07:40 WBC 11.0 H Hgb 9.2 L Hct 33.1 L MCV 76.3 L MCH 21.3 L MCHC 27.9 L RDW 17.2 H Neutrophils # 9.1 H Sodium Chloride 111 H Carbon Dioxide BUN 18 H Glucose Calcium 11.5 H Alkaline Phosphatase Vitamin D 25-Hydroxy 9.2 L PTH Intact Urine Protein Urine Blood Ur Leukocyte Esterase Urine RBC Urine Bacteria Urine Mucus - Diagnostic Findings Chest x-ray: report reviewed, image reviewed CT scan - chest: report reviewed, image reviewed (Findings reported as above) Assessment and Plan Assessment: Multiple small bilateral nodules less than 5 mm in size in the lungs probably suspect related to hypercalcemia or likely nonspecific History of remote smoking Hypercalcemia workup is in progress Hyperparathyroidism likely Bilateral hydronephrosis Left flank pain Plan: Patient will need a follow-up computed tomography scan of the chest in 2-3 month We'll continue to follow progression and workup for hypercalcemia Continue deep breathing exercise incentive spirometry We'll follow with you further recommendations pending as per response of the patient As always he appreciated involving us in care of patient will follow with you Time with Patient: Greater than 30
[2020-02-01] MEDS: CINACALCET 30 MG TAB PO SCH (10:52)
--- NOTE | 2020-02-01 13:18 | NM ---
EXAMINATION TYPE: NM parathyroid w/spect DATE OF EXAM: 02/01/2020 COMPARISON: CTA aorta 3 days ago. HISTORY: Hypercalcemia. TECHNIQUE: Following administration of 25.8 mCi Tc99m Sestamibi. Anterior projection images of the neck and ches t were obtained 10 minutes and 3 hours post injection. SPECT images of the neck and chest were obtai eduardo and reconstructed in three axes. FINDINGS: Thyroid tracer washout: Delayed images demonstrate near-complete tracer washout from the thyroid. Thi s is better seen on non-SPECT images. Parathyroid uptake: The delayed images show no suspicious focus of increased retained radiotracer. Normal uptake: There is physiological tracer uptake in the salivary glands. IMPRESSION: Normal parathyroid imaging study. No evidence for abnormal mediastinal uptake to suggest mediastinal parathyroid adenoma
[2020-02-01 13:26] LABS: Vitamin D, 1, 25-Dihydroxy 57 pg/mL (20 - 79)
[2020-02-01 14:57] LABS: Albumin 3.42 g/dL (3.80-4.90); Gamma Globulin 1.04 g/dL (0.70-1.50)
[2020-02-01] MEDS: HYDROcodone/APAP 5-325MG 1 EACH TAB PO PRN (15:41)
[2020-02-01] MEDS: LACTATED RINGERS 1,000 ML IV SCH (21:21)
[2020-02-02] MEDS: SODIUM CHLORIDE 0.9% 1,000 ML IV SCH (02:55)
[2020-02-02] MEDS: PANTOPRAZOLE 40 MG TABLET PO SCH (06:22)
[2020-02-02] MEDS: HYDROcodone/APAP 5-325MG 1 EACH TAB PO PRN (06:24)
[2020-02-02] MEDS: LABETALOL 200 MG TAB PO SCH ×2 (08:31→20:37)
[2020-02-02] MEDS: HEPARIN SODIUM,PORCINE 5,000 UNIT/ML 1 ML VIAL SQ SCH ×2 (08:31→20:37)
[2020-02-02] MEDS: amLODIPine 5 MG TAB PO SCH ×2 (08:32→20:37)
[2020-02-02] MEDS: lisinopriL 20 MG TAB PO SCH (08:32)
[2020-02-02] MEDS: CINACALCET 30 MG TAB PO SCH (08:32)
--- NOTE | 2020-02-02 09:20 | P.PN ---
Subjective Patient is seen in follow-up for hypercalcemia. Calcium level 11.5 as of yesterday. Good oral intake. No vomiting or diarrhea. No active complaints. Vital signs are stable. General: The patient appeared well nourished and normally developed. HEENT: Head exam is unremarkable. Neck is without jugular venous distension. LUNGS: Lungs are clear to auscultation and percussion. Breath sounds decreased. HEART: Rate and Rhythm are regular. First and second heart sounds normal. No murmurs, rubs or gallops. ABDOMEN: Soft, nontender. EXTREMITITES: No clubbing, cyanosis, or edema. Objective - Vital Signs Vital signs: Vital Signs Temp 100.5 F H 02/02/20 08:00 Pulse 83 02/02/20 08:00 Resp 16 02/02/20 08:00 BP 128/64 02/02/20 08:00 Pulse Ox 95 02/02/20 08:00 Intake & Output 02/01/20 02/02/20 02/02/20 18:59 06:59 18:59 Intake Total 1200 600 Output Total 350 350 Balance 850 600 -350 Weight 98.1 kg Intake: Oral 1200 600 Output: Urine 350 350 Other: Voiding Method Toilet Toilet - Labs CBC & Chem 7: 02/01/20 07:40 02/01/20 07:40 Labs: Abnormal Lab Results - Last 24 Hours (Table) 01/31/20 02/01/20 02/01/20 Range/Units 07:27 07:40 07:40 WBC 11.0 H (3.8-10.6) k/uL Hgb 9.2 L (11.4-16.0) gm/dL Hct 33.1 L (34.0-46.0) % MCV 76.3 L (80.0-100.0) fL MCH 21.3 L (25.0-35.0) pg MCHC 27.9 L (31.0-37.0) g/dL RDW 17.2 H (11.5-15.5) % Neutrophils # 9.1 H (1.3-7.7) k/uL Chloride 111 H (98-107) mmol/L BUN 18 H (7-17) mg/dL Calcium 11.5 H (8.4-10.2) mg/dL Albumin (PEP) 3.42 L (3.80-4.90) g/dL Assessment and Plan Plan: Assessment: 1. Hypercalcemia, parathyroid mediated. Her PTH level is noted to be elevated at 177.6 and 206.9 when repeated. Vitamin D low at 9.2. 1,25 vit D3 57. LUIS FERNANDO normal at 27. No monoclonality noted. No evidence of adenoma on parathyroid nuclear scan. High suspicion for hyperplasia. Urine calcium to creatinine ratio is 0.25 which is suggestive of hypercalciuria. 2. Bilateral hydronephrosis secondary to obstructive renal calculi status post bilateral ureteral stents placed January 30. 3. Metabolic acidosis secondary to IV fluids. Better. 4. Benign hypertension. Controlled. 5. Bilateral nephrolithiasis. Most likely secondary to primary hyperparathyroidism. No evidence of medullary sponge kidney. Plan: Maintain normal saline at 50 mL an hour. Status post 60 mg IV pamidronate January 30. Repeat electrolytes in the morning. Follow-up urine calcium to creatinine ratio. Continue Sensipar 30 mg once daily. She will need to follow-up with endocrinology as well as surgery in the near future.
[2020-02-02 09:32] LABS: Appearance,Urine Clear (Clear); Bacteria,Urine Rare /hpf; Bilirubin,Urine Negative (Negative); Blood,Urine Large (Negative); Color,Urine Yellow; Glucose,Urine (UA) Negative (Negative); Ketones,Urine Negative (Negative); Leukocyte Esterase,Urine Moderate (Negative); Mucus,Urine Rare /hpf; Nitrite,Urine Negative (Negative); Protein,Urine 1+ (Negative); RBC,Urine >182 /hpf (0-5); Squamous Epithelial Cell,Urine 1 /hpf (0-4); Urobilinogen,Urine <2.0 mg/dL (<2.0); WBC,Urine 16 /hpf (0-5)
--- NOTE | 2020-02-02 10:48 | P.PN ---
Subjective Progress Note Date: 02/02/20 Principal diagnosis: Multiple small bilateral nodules less than 5 mm in size in the lungs probably suspect related to hypercalcemia or likely nonspecific History of remote smoking Hypercalcemia workup is in progress acute primary hyperparathyroidism Nephrolithiasis and renal calculi status post bilateral stent placement Bilateral hydronephrosis Left flank pain 02/02/2020, patient has been doing well in terms of respiratory coley denies any chest pain or shortness of breath breathing comfortably, patient condition level remains elevated 11.5, no nausea vomiting is present workup is in progress, she did spike a fever of 100.5, likely due to urinary tract infection due to hydronephrosis, patient status post pamidronate on January 30, status post bilateral stent placement for hydronephrosis due to nephrolithiasis, likely due to primary hyperparathyroidism This is a 49-year-old female with remote history of smoking one pack a day with several years ago has smoked about 10-15 years as soon history of smoking, patient admitted to hospital with left flank pain found to have bilateral hydronephrosis in addition patient has hypercalcemia thought to be related to hy perparathyroidism workup in progress, urology and nephrology also evaluating this patient, patient has significant microcytic anemia anemia, with a normal renal functions, on arrival She is 11.2 and now is 11.5, parathyroid hormone level is elevated 177.6 and 206 consistent with primary hyperparathyroidism vitamin D level is low of 9.2, computed tomography scan of the chest revealed that the small few millimeter to 5 mm ill-defined nodules predominantly in the bases noted, patient denies any cough fever or shortness of breath or chest pain, no weight loss night sweats or hemoptysis present, patient is status post stent placement in ureter for hydronephrosis, Objective - Vital Signs Vital signs: Vital Signs Temp 100.5 F H 02/02/20 08:00 Pulse 83 02/02/20 08:55 Resp 16 02/02/20 08:55 BP 128/64 02/02/20 08:00 Pulse Ox 95 02/02/20 08:00 Intake & Output 02/01/20 02/02/20 02/02/20 18:59 06:59 18:59 Intake Total 1200 600 Output Total 350 350 Balance 850 600 -350 Weight 98.1 kg Intake: Oral 1200 600 Output: Urine 350 350 Other: Voiding Method Toilet Toilet Toilet - Exam - Constitutional General appearance: average body habitus, cooperative, disheveled - EENT Eyes: EOMI, PERRLA Ears: bilateral: normal - Neck Neck: normal ROM Carotids: bilateral: upstroke normal Thyroid: bilateral: normal size - Respiratory Respiratory: bilateral: CTA - Cardiovascular Rhythm: regular Heart sounds: normal: S1, S2 - Gastrointestinal General gastrointestinal: normal bowel sounds, soft - Neurologic Neurologic: CNII-XII intact - Musculoskeletal Musculoskeletal: gait normal, generalized weakness, strength equal bilaterally - Labs CBC & Chem 7: 02/01/20 07:40 02/01/20 07:40 Labs: Abnormal Lab Results - Last 24 Hours (Table) 01/31/20 02/02/20 Range/Units 07:27 09:00 Albumin (PEP) 3.42 L (3.80-4.90) g/dL Urine Protein 1+ H (Negative) Urine Blood Large H (Negative) Ur Leukocyte Esterase Moderate H (Negative) Urine RBC >182 H (0-5) /hpf Urine WBC 16 H (0-5) /hpf Urine Bacteria Rare H (None) /hpf Urine Mucus Rare H (None) /hpf Assessment and Plan Assessment: Multiple small bilateral nodules less than 5 mm in size in the lungs probably suspect related to hypercalcemia or likely nonspecific History of remote smoking Hypercalcemia workup is in progress likely related to hyperparathyroidism Hyperparathyroidism likely Nephrolithiasis and bilateral ureteric calculi Bilateral hydronephrosis Left flank pain Plan: Patient will need a follow-up computed tomography scan of the chest in 2-3 month We'll continue to follow progression and workup for hypercalcemia Continue deep breathing exercise incentive spirometry We'll follow with you further recommendations pending as per response of the patient As always he appreciated involving us in care of patient will follow with you Time with Patient: Greater than 30
[2020-02-02 11:13] LABS: African American GFR (CKD) >90 (>60 ml/min/1.73 sqM); Anion Gap 3 mmol/L; Blood Urea Nitrogen 18 mg/dL (7-17); Carbon Dioxide 22 mmol/L (22-30); Chloride 110 mmol/L (98-107); Glucose 91 mg/dL (74-99); Magnesium 1.6 mg/dL (1.6-2.3); Non-African American GFR(CKD) 80 (>60 ml/min/1.73 sqM); Potassium 4.2 mmol/L (3.5-5.1); Sodium 135 mmol/L (137-145)
[2020-02-02] MEDS ORDERED: VANCOMYCIN 1,500 MG in SODIUM CHLORIDE 0.9% 250 ML IVPB SCH (17:00)
--- NOTE | 2020-02-02 17:03 | DS ---
DISCHARGE SUMMARY FINAL DIAGNOSES: 1. Flank pain and bilateral hydronephrosis with bilateral obstructive uropathy with multiple ureteral calculi with status post double-J stent insertion. 2. Hypercalcemia secondary to hyperparathyroidism. 3. Multiple lung nodules. 4. Hypertensive emergency and urgency, improved. 5. Chest pain, myocardial infarction ruled out. 6. Remote history of nicotine dependence. 7. Obesity with body mass of 31. DISCHARGE DISPOSITION: The patient will be discharged in stable condition with guarded prognosis. Total time taken is 35 minutes. HISTORY OF PRESENT ILLNESS: This is a 49-year-old woman with a past medical problems being followed by Dr. Katz in the outpatient setting was admitted chest and flank pain. The patient was found to have bilateral hydronephrosis. Urology performed the double-J stenting. The patient also had blood high blood pressure, which was monitored medically and hypercalcemia was noted. Recommended endocrine evaluation outpatient setting. Otherwise, patient improved significantly and the patient will be discharged in a stable condition with guarded prognosis with the following advice and medications. On exam, vitals are stable. CARDIOVASCULAR: S1, S2. ABDOMEN: Soft. NERVOUS SYSTEM: No focal deficits. DISCHARGE ADVICE: 1. Diet is cardiac diet. 2. Activity limited until followup. 3. Follow up with Dr. Hermosillo. 4. Follow up with as advised. 5. Follow up with Dr. Katz and Dr. Francisco as advised. 6. Follow up with as advised. MEDICATIONS: 1. Aleve 660 mg p.o. 2. Aspirin and caffeine as before. 3. Norvasc 5 mg p.o. b.i.d. 4. Labetalol 200 mg p.o. b.i.d. 5. Zestril 20 mg p.o. daily. Followup labs with Dr. Katz. MMODL / IJN: [id number] / [facility]
[2020-02-02] MEDS ORDERED: VANCOMYCIN IV PER PHARMACY 1 EACH MISC MISCELLANE PRN (17:07)
--- NOTE | 2020-02-02 17:18 | PN ---
PROGRESS NOTE DATE OF SERVICE: 02/02/2020 This 49-year-old woman was admitted with flank pain as well as bilateral hydronephrosis and just had a double-J stent catheter placement. Patient also had accelerated hypertension. Patient will be closely monitored at this time. The patient is running a fever. Repeat cultures have been sought. Patient is on Rocephin. Multiple consultants are following the patient closely. PAST MEDICAL HISTORY: Reviewed. REVIEW OF SYSTEMS: CARDIOVASCULAR SYSTEM: No angina. RESPIRATION: As mentioned earlier. GI: As mentioned earlier. : As mentioned earlier. NERVOUS SYSTEM: No numbness or weakness. CURRENT MEDICATIONS: 1. Tylenol. 2. Hardwick. 3. Xanax. 4. Norvasc. 5. Rocephin. 6. Sensipar. 7. Heparin. 8. Trandate. 9. Zestril. 10. sulfate. 11.Protonix. 12.Restoril. PHYSICAL EXAM: Patient is alert and oriented x3. Pulse 72, blood pressure 124/70, respirations 17. Temperature is 100 degrees, pulse ox 97% on room air. HEENT: Conjunctivae normal. NECK: No jugular venous distension. CARDIOVASCULAR SYSTEM: S1, S2 ,muffled. RESPIRATION: Breath sounds diminished at the bases. A few scattered rhonchi, no crackles. ABDOMEN: Soft, nontender. LEGS: No edema. No swelling. NERVOUS SYSTEM: No focal deficits. LABS: WBC 11, hemoglobin is 9.2, sodium 135. UA noted. Abnormal urine. ASSESSMENT: 1. Fever, possible acute UTI, rule out sepsis. 2. Bilateral obstructive uropathy with multiple ureteral calculi and bilateral severe hydroureter, hydronephrosis, status post bilateral double-J stent catheter placement. 3. Hypercalcemia secondary to hyperparathyroidism. 4. Multiple lung nodules. 5. Hypertensive urgency emergency. 6. Chest pain. 7. History of nicotine dependence. 8. Obesity with body mass index of 31. RECOMMENDATION: Recommend to continue current management. I recommend urine culture, blood culture and as well as chest x-ray portable. I would also recommend repeat CAT scan of the abdomen, pelvis and as well as a COVID-19 testing. A parathyroid scan showed normal parathyroid. Recommend outpatient followup with Endocrinology. Guarded prognosis because of multiple complex medical issues. Further recommendations to follow. MMODL / IJN: [id number] / [facility]
[2020-02-02] MEDS: IOPAMIDOL CONTRAST (ORAL USE) VIAL PO PRN ×2 (17:20→18:10)
[2020-02-02] MEDS: PIPERACILLIN-TAZOBACTAM 3.375 GM in SODIUM CHLORIDE 0.9% 100 ML IVPB SCH ×2 (17:21→23:14)
--- NOTE | 2020-02-02 17:44 | XR ---
EXAMINATION TYPE: XR chest 1V portable DATE OF EXAM: 02/02/2020 COMPARISON: 01/29/2020. HISTORY: Fever status post bilateral stent placement 2 days ago. TECHNIQUE: Single frontal view of the chest is obtained. FINDINGS: There is no focal air space opacity, pleural effusion, or pneumothorax seen. The cardiac silhouette size is within normal limits. The osseous structures are intact. IMPRESSION: No acute process.
[2020-02-02] MEDS ORDERED: VANCOMYCIN 1,750 MG in SODIUM CHLORIDE 0.9% 500 ML 500 ML IVPB ONE (18:00)
[2020-02-02 18:42] LABS: Appearance,Urine Clear (Clear); Bilirubin,Urine Negative (Negative); Blood,Urine Large (Negative); Color,Urine Light Yellow; Glucose,Urine (UA) Negative (Negative); Ketones,Urine Negative (Negative); Leukocyte Esterase,Urine Moderate (Negative); Mucus,Urine Rare /hpf; Nitrite,Urine Negative (Negative); Protein,Urine Negative (Negative); RBC,Urine >182 /hpf (0-5); Specific Gravity,Urine 1.007 (1.001-1.035); Squamous Epithelial Cell,Urine <1 /hpf (0-4); Urobilinogen,Urine <2.0 mg/dL (<2.0); WBC,Urine 6 /hpf (0-5)
--- NOTE | 2020-02-02 19:03 | P.PN ---
Subjective Progress Note Date: 02/02/20 POD # 2 S/P left ureteroscopy and bilateral ureteral stent placement. No acute overnight event. Pain is controlled, tolerating diet. Ambulating, denies any flank pain or gross hematuria Objective - Vital Signs Vital signs: Vital Signs Temp 100 F H 02/02/20 16:07 Pulse 72 02/02/20 16:09 Resp 17 02/02/20 16:09 BP 124/70 02/02/20 16:07 Pulse Ox 97 02/02/20 16:07 Intake & Output 02/01/20 02/02/20 02/02/20 18:59 06:59 18:59 Intake Total 0894 504 7901 Output Total 350 750 Balance 850 600 482 Weight 98.1 kg Intake: Intake, IV Titration 350 Amount Sodium Chloride 0.9% 50 350 ml @ 0 mls/hr IV .STK-MED ONE with ceFAZolin 2,000 mg Rx#:[id number] Oral 1200 600 882 Output: Urine 350 750 Other: Voiding Method Toilet Toilet Toilet - Constitutional General appearance: Present: no acute distress - Psychiatric Psychiatric: Present: A&O x's 3 - Labs CBC & Chem 7: 02/01/20 07:40 02/02/20 10:17 Labs: Abnormal Lab Results - Last 24 Hours (Table) 02/02/20 02/02/20 02/02/20 Range/Units 09:00 10:17 16:00 Sodium 135 L (137-145) mmol/L Chloride 110 H (98-107) mmol/L BUN 18 H (7-17) mg/dL Urine Protein 1+ H (Negative) Urine Blood Large H Large H (Negative) Ur Leukocyte Esterase Moderate H Moderate H (Negative) Urine RBC >182 H >182 H (0-5) /hpf Urine WBC 16 H 6 H (0-5) /hpf Urine Bacteria Rare H (None) /hpf Urine Mucus Rare H Rare H (None) /hpf Microbiology - Last 24 Hours (Table) 02/02/20 09:00 Urine Culture - Preliminary Urine,Voided Assessment and Plan Assessment: 49 yo admitted with uncontrolled BP, CT showed bilateral hydronephrosis multiple ureteral and ureteral stone bilaterally. Evidence of hypercalcemia. Discussed with her given her significant stone burden she will require multiple surgeries to address her stone burden, she has multiple large stone within the left ureter and additional non-obstructing stones, she also has 7 mm right proximal stone and multiple non-obstructing stones. Discussed with her she will require staged ureteroscopy to address her bilateral stones. She is S/P bilateral stent placement and left ureteroscopy. Endocrine and Nephrology onboard for hypercalcemia Plan: -Ok For discharge from urology standpoint -F/U outpatient in Urology clinic in 1-2 weeks
--- NOTE | 2020-02-02 19:41 | CT ---
EXAMINATION TYPE: CT ChestAbdPelvis wo con DATE OF EXAM: 02/02/2020 COMPARISON: 01/29/2020. HISTORY: Fever, post op bilateral renal stent. CT DLP: 1094.8 mGycm. Automated Exposure Control for Dose Reduction was Utilized. TECHNIQUE: CT scan of the thorax, abdomen and pelvis is performed without IV contrast. FINDINGS: LUNGS: The lungs are grossly clear, there is no concerning parenchymal mass or nodule identified. T here is no pleural effusion or pneumothorax seen. The tracheobronchial tree is patent. MEDIASTINUM: There are no greater than 1 cm hilar or mediastinal lymph nodes. No pericardial effusi on is seen. OTHER: No additional significant abnormality is seen. LIVER/GB: No significant abnormality is appreciated. PANCREAS: No significant abnormality is seen. SPLEEN: No significant abnormality is seen. ADRENALS: No significant abnormality is seen. KIDNEYS: Interval bilateral ureteral stents placement. There is persistent severe bilateral hydroneph rosis. However there is interval absence of obstructing right UPJ calculus. Interval decrease in numb er of multiple left ureteral calculi, with a 2 mm single remnant at the distal ureters seen. Addition al multiple bilateral nonobstructing renal calculi are again seen measuring up to 17 mm on the right and 6 mm on the left. BOWEL: No significant abnormality is seen. GENITAL ORGANS: No gross abnormality seen. LYMPH NODES: No greater than 1cm abdominal or pelvic lymph nodes are appreciated. OSSEOUS STRUCTURES: No significant abnormality is seen. OTHER: No significant additional abnormality is seen. IMPRESSION: Status post bilateral ureter stents with persistent severe bilateral hydronephrosis. Interval resolution of previous right UPJ calculus and decrease in number of left ureteral calculi wi th single remnant as described above. Persistent additional multiple nonobstructing bilateral renal calculi with the largest measuring up t o 2 cm as described. Otherwise no acute abnormality of the chest, abdomen or pelvis.
[2020-02-03] MEDS: SODIUM CHLORIDE 0.9% 1,000 ML IV SCH ×2 (06:09→13:47)
[2020-02-03] MEDS: VANCOMYCIN 1,500 MG in SODIUM CHLORIDE 0.9% 250 ML IVPB SCH ×2 (06:10→20:53)
[2020-02-03] MEDS: PANTOPRAZOLE 40 MG TABLET PO SCH (06:10)
[2020-02-03 08:45] LABS: African American GFR (CKD) >90 (>60 ml/min/1.73 sqM); Anion Gap 5 mmol/L; Blood Urea Nitrogen 13 mg/dL (7-17); Calcium 9.5 mg/dL (8.4-10.2); Carbon Dioxide 22 mmol/L (22-30); Chloride 111 mmol/L (98-107); Glucose 131 mg/dL (74-99); Magnesium 1.8 mg/dL (1.6-2.3); Non-African American GFR(CKD) 79 (>60 ml/min/1.73 sqM); Potassium 3.7 mmol/L (3.5-5.1); Sodium 138 mmol/L (137-145)
[2020-02-03] MEDS: LABETALOL 200 MG TAB PO SCH ×2 (08:46→21:44)
[2020-02-03] MEDS: amLODIPine 5 MG TAB PO SCH ×2 (08:46→20:53)
[2020-02-03] MEDS: CINACALCET 30 MG TAB PO SCH (08:46)
[2020-02-03] MEDS: lisinopriL 20 MG TAB PO SCH (08:46)
[2020-02-03] MEDS: HEPARIN SODIUM,PORCINE 5,000 UNIT/ML 1 ML VIAL SQ SCH ×2 (08:47→20:53)
[2020-02-03] MEDS: PIPERACILLIN-TAZOBACTAM 3.375 GM in SODIUM CHLORIDE 0.9% 100 ML IVPB SCH ×3 (09:51→23:30)
--- NOTE | 2020-02-03 10:56 | P.PN ---
Subjective Progress Note Date: 02/03/20 Principal diagnosis: Multiple small bilateral nodules less than 5 mm in size in the lungs probably suspect related to hypercalcemia or likely nonspecific History of remote smoking Hypercalcemia workup is in progress acute primary hyperparathyroidism Nephrolithiasis and renal calculi status post bilateral stent placement Bilateral hydronephrosis Left flank pain 02/03/2020, patient denies any chest pain denies any shortness of breath cough or sputum production, care she was normalized to 9.5 now patient most likely will be discharged follow-up as outpatient then will schedule computed tomography scan of the chest as noted above 02/02/2020, patient has been doing well in terms of respiratory coley denies any chest pain or shortness of breath breathing comfortably, patient condition level remains elevated 11.5, no nausea vomiting is present workup is in progress, she did spike a fever of 100.5, likely due to urinary tract infection due to hydronephrosis, patient status post pamidronate on January 30, status post bilateral stent placement for hydronephrosis due to nephrolithiasis, likely due to primary hyperparathyroidism This is a 49-year-old female with remote history of smoking one pack a day with several years ago has smoked about 10-15 years as soon history of smoking, patient admitted to hospital with left flank pain found to have bilateral hydronephrosis in addition patient has hypercalcemia thought to be related to hyperparathyroidism workup in progress, urology and nephrology also evaluating this patient, patient has significant microcytic anemia anemia, with a normal renal functions, on arrival She is 11.2 and now is 11.5, parathyroid hormone level is elevated 177.6 and 206 consistent with primary hyperparathyroidism vitamin D level is low of 9.2, computed tomography scan of the chest revealed that the small few millimeter to 5 mm ill-defined nodules predominantly in the bases noted, patient denies any cough fever or shortness of breath or chest pain, no weight loss night sweats or hemoptysis present, patient is status post stent placement in ureter for hydronephrosis, Objective - Vital Signs Vital signs: Vital Signs Temp 96.1 F L 02/03/20 09:15 Pulse 65 02/03/20 09:15 Resp 18 02/03/20 09:15 BP 112/57 02/03/20 09:15 Pulse Ox 96 02/03/20 09:15 Intake & Output 02/02/20 02/03/20 02/03/20 18:59 06:59 18:59 Intake Total 1232 240 Output Total 750 Balance 482 240 Weight 96.7 kg Intake: Intake, IV Titration 350 Amount Sodium Chloride 0.9% 50 350 ml @ 0 mls/hr IV .STK-MED ONE with ceFAZolin 2,000 mg Rx#:[id number] Oral 882 240 Output: Urine 750 Other: Voiding Method Toilet Toilet Toilet - Exam - Constitutional General appearance: average body habitus, cooperative, disheveled - EENT Eyes: EOMI, PERRLA Ears: bilateral: normal - Neck Neck: normal ROM Carotids: bilateral: upstroke normal Thyroid: bilateral: normal size - Respiratory Respiratory: bilateral: CTA - Cardiovascular Rhythm: regular Heart sounds: normal: S1, S2 - Gastrointestinal General gastrointestinal: normal bowel sounds, soft - Neurologic Neurologic: CNII-XII intact - Musculoskeletal Musculoskeletal: gait normal, generalized weakness, strength equal bilaterally - Labs CBC & Chem 7: 02/01/20 07:40 02/03/20 07:48 Labs: Abnormal Lab Results - Last 24 Hours (Table) 02/02/20 02/02/20 02/03/20 Range/Units 10:17 16:00 07:48 Sodium 135 L (137-145) mmol/L Chloride 110 H 111 H (98-107) mmol/L BUN 18 H (7-17) mg/dL Glucose 131 H (74-99) mg/dL Urine Blood Large H (Negative) Ur Leukocyte Esterase Moderate H (Negative) Urine RBC >182 H (0-5) /hpf Urine WBC 6 H (0-5) /hpf Urine Mucus Rare H (None) /hpf Microbiology - Last 24 Hours (Table) 02/02/20 09:00 Urine Culture - Preliminary Urine,Voided Assessment and Plan Assessment: Multiple small bilateral nodules less than 5 mm in size in the lungs probably suspect related to hypercalcemia or likely nonspecific History of remote smoking Hypercalcemia workup is in progress likely related to hyperparathyroidism Hyperparathyroidism likely Nephrolithiasis and bilateral ureteric calculi Bilateral hydronephrosis Left flank pain Plan: Patient will need a follow-up computed tomography scan of the chest in 2-3 month We'll continue to follow progression and workup for hypercalcemia Continue deep breathing exercise incentive spirometry We'll follow with you further recommendations pending as per response of the patient As always he appreciated involving us in care of patient will follow with you Time with Patient: Greater than 30
--- NOTE | 2020-02-03 12:48 | PN ---
PROGRESS NOTE HISTORY: Patient is seen for followup for hypercalcemia which is secondary to hyperparathyroidism and patient is maintained on Sensipar. Her calcium level has improved. It is down to 9.5 today. Patient is possibly going home today. PHYSICAL EXAMINATION: On examination, she is comfortable, awake, alert, oriented x3. Blood pressure is 112/57, heart rate 65 per minute, she is afebrile. Examination of the heart S1, S2. Examination of the lungs, bilateral breath sounds are heard. Abdomen is soft, nontender. Examination of lower extremities shows no significant edema. LABS: Sodium 138, potassium 3.7, chloride 111. CO2 is 22, BUN 13, creatinine 0.8, calcium 9.5. ASSESSMENT: 1. Hypercalcemia secondary to hyperparathyroidism most likely hyperplasia, maintained on Sensipar and improved. Patient will follow up with Endocrine as outpatient. 2. Bilateral hydronephrosis secondary to obstructive renal calculi status post bilateral ureteral stent placement. 3. Nephrolithiasis, most likely associated with primary hyperparathyroidism. 4. Metabolic acidosis, currently improved. 5. Hypertension, controlled. PLAN: Patient can be discharged. Follow up as outpatient with Endocrinology and Urology. MMODL / IJN: [id number] /
--- NOTE | 2020-02-03 18:45 | PN ---
PROGRESS NOTE DATE OF SERVICE: 02/03/2020. HISTORY: This 49-year-old woman was admitted with fever with possible UTI, also had bilateral obstructive uropathy which is persisting at this time. Antibiotics are changed. CT scan of the abdomen and pelvis showed significant hydronephrosis, which is unchanged at this time but however the fever subsided. Cultures are negative so far. Patient is on IV Zosyn at this time. Multiple consultants are following the patient including Nephrology. Patient also had hypercalcemia secondary to hyperparathyroidism, possibly may need outpatient workup. PAST MEDICAL HISTORY: Reviewed. REVIEW OF SYSTEMS: CARDIOVASCULAR SYSTEM: No angina. RESPIRATORY: As mentioned earlier. GI: As mentioned earlier. : As mentioned earlier. NERVOUS SYSTEM: No numbness or weakness. CURRENT MEDICATIONS: Reviewed include Tylenol p.r.n., [place], Xanax, Norvasc, Sensipar, heparin, Trandate, Zestril, Narcan, Protonix, Restoril vancomycin, Zosyn. PHYSICAL EXAMINATION: Alert, oriented x3. Pulse 60, blood pressure 105/58, respirations 18, temperature 97.7, pulse ox 98% on room air. HEENT: Conjunctivae normal. NECK: No JVD. CARDIOVASCULAR: S1 and S2 muffled. LUNGS: Breath sounds diminished in the bases. A few scattered rhonchi. ABDOMEN: Soft nontender. NERVOUS SYSTEM: No focal deficits. LABS: Sodium 130, potassium 3.7, otherwise UA noted. Cultures negative so far. ASSESSMENT: 1. Fever, possible acute UTI with possible sepsis present on admission. 2. Bilateral obstructive uropathy with multiple ureteral calculi and as well as bilateral severe hydroureter, hydronephrosis, status post bilateral double-J stent placement. 3. Hypercalcemia secondary to hyperparathyroidism. 4. Multiple lung nodules. 5. Hypertensive urgency and emergency present on admission. 6. Chest pain possibly musculoskeletal. 7. History of nicotine dependence. 8. Obesity with body mass index of 31. RECOMMENDATIONS: Continue current management and symptomatic treatment. The patient was recently started on Zosyn. The cultures are negative so far. The patient is feeling much better. I would recommend continue IV Zosyn at least for next 24-48 hours and once the patient is stabilized, we can send the patient home. Otherwise close outpatient followup for the above mentioned multiple complex medical issues, especially include for also including a hyperparathyroidism for possibly with Endocrinology also. MMODL / IJN: [id number] /
[2020-02-04] MEDS: SODIUM CHLORIDE 0.9% 1,000 ML IV SCH (05:42)
[2020-02-04] MEDS: VANCOMYCIN 1,500 MG in SODIUM CHLORIDE 0.9% 250 ML IVPB SCH (05:42)
[2020-02-04] MEDS: PANTOPRAZOLE 40 MG TABLET PO SCH (06:42)
[2020-02-04 09:19] VITALS: TEMP 97.2
[2020-02-04] MEDS: PIPERACILLIN-TAZOBACTAM 3.375 GM in SODIUM CHLORIDE 0.9% 100 ML IVPB SCH (09:57)
[2020-02-04] MEDS: CINACALCET 30 MG TAB PO SCH (10:01)
[2020-02-04] MEDS: lisinopriL 20 MG TAB PO SCH (10:01)
[2020-02-04] MEDS: HEPARIN SODIUM,PORCINE 5,000 UNIT/ML 1 ML VIAL SQ SCH (10:01)
[2020-02-04] MEDS: amLODIPine 5 MG TAB PO SCH (10:01)
[2020-02-04] MEDS: LABETALOL 200 MG TAB PO SCH (10:01)
--- NOTE | 2020-02-04 10:55 | P.PN ---
Subjective Progress Note Date: 02/04/20 Principal diagnosis: Multiple small bilateral nodules less than 5 mm in size in the lungs probably suspect related to hypercalcemia or likely nonspecific History of remote smoking Hypercalcemia workup is in progress acute primary hyperparathyroidism Nephrolithiasis and renal calculi status post bilateral stent placement Bilateral hydronephrosis Left flank pain 02/04/2020, patient seen eval reexamined during the rounds denies any chest pain shortness of breath breathing comfortably no obvious distress present, patient remains on antibiotics for pyelonephritis, from pulmonary standpoint stable for discharge follow-up as outpatient 02/03/2020, patient denies any chest pain denies any shortness of breath cough or sputum production, care she was normalized to 9.5 now patient most likely will be discharged follow-up as outpatient then will schedule computed tomography scan of the chest as noted above 02/02/2020, patient has been doing well in terms of respiratory coley denies any chest pain or shortness of breath breathing comfortably, patient condition level remains elevated 11.5, no nausea vomiting is present workup is in progress, she did spike a fever of 100.5, likely due to urinary tract infection due to hydronephrosis, patient status post pamidronate on January 30, status post bilateral stent placement for hydronephrosis due to nephrolithiasis, likely due to primary hyperparathyroidism This is a 49-year-old female with remote history of smoking one pack a day with several years ago has smoked about 10-15 years as soon history of smoking, patient admitted to hospital with left flank pain found to have bilateral hydronephrosis in addition patient has hypercalcemia thought to be related to hyperparathyroidism workup in progress, urology and nephrology also evaluating this patient, patient has significant microcytic anemia anemia, with a normal renal functions, on arrival She is 11.2 and now is 11.5, parathyroid hormone level is elevated 177.6 and 206 consistent with primary hyperparathyroidism vitamin D level is low of 9.2, computed tomography scan of the chest revealed that the small few millimeter to 5 mm ill-defined nodules predominantly in the bases noted, patient denies any cough fever or shortness of breath or chest pain, no weight loss night sweats or hemoptysis present, patient is status post stent placement in ureter for hydronephrosis, Objective - Vital Signs Vital signs: Vital Signs Temp 97.2 F L 02/04/20 09:14 Pulse 73 02/04/20 09:14 Resp 16 02/04/20 09:14 BP 101/67 02/04/20 09:14 Pulse Ox 98 02/04/20 09:14 Intake & Output 02/03/20 02/04/20 02/04/20 18:59 06:59 18:59 Intake Total 780 930 180 Output Total 450 500 Balance 330 430 180 Weight 95.8 kg Intake: Intake, IV Titration 450 Amount Piperacillin-Tazobactam 3 200 .375 gm In Sodium Chloride 0.9% 100 ml @ 25 mls/hr IVPB Q8HR [facility] Rx# :[id number] Vancomycin 1,500 mg In 250 Sodium Chloride 0.9% 250 ml @ 125 mls/hr IVPB Q12H [facility] Rx#:[id number] Oral 780 480 180 Output: Urine 450 500 Stool 0 Other: Voiding Method Toilet Toilet # Voids 0 1 # Bowel Movements 1 - Exam - Constitutional General appearance: average body habitus, cooperative, disheveled - EENT Eyes: EOMI, PERRLA Ears: bilateral: normal - Neck Neck: normal ROM Carotids: bilateral: upstroke normal Thyroid: bilateral: normal size - Respiratory Respiratory: bilateral: CTA - Cardiovascular Rhythm: regular Heart sounds: normal: S1, S2 - Gastrointestinal General gastrointestinal: normal bowel sounds, soft - Neurologic Neurologic: CNII-XII intact - Musculoskeletal Musculoskeletal: gait normal, generalized weakness, strength equal bilaterally - Labs CBC & Chem 7: 02/01/20 07:40 02/03/20 07:48 Labs: Microbiology - Last 24 Hours (Table) 02/02/20 17:11 Blood Culture - Preliminary Blood No Growth after 24 hours 02/02/20 09:00 Urine Culture - Final Urine,Voided Assessment and Plan Assessment: Multiple small bilateral nodules less than 5 mm in size in the lungs probably suspect related to hypercalcemia or likely nonspecific History of remote smoking Hypercalcemia workup is in progress likely related to hyperparathyroidism Hyperparathyroidism likely Nephrolithiasis and bilateral ureteric calculi Bilateral hydronephrosis Left flank pain Plan: Patient will need a follow-up computed tomography scan of the chest in 2-3 month We'll continue to follow progression and workup for hypercalcemia Continue deep breathing exercise incentive spirometry We'll follow with you further recommendations pending as per response of the patient As always he appreciated involving us in care of patient will follow with you Time with Patient: Greater than 30
[2020-02-04 11:50] LABS: Anisocytosis Slight; Basophils # (A) 0.1 k/uL (0-0.2); Basophils % (A) 1 %; Eosinophils # (A) 0.3 k/uL (0-0.7); Eosinophils % (A) 5 %; HCT 34.3 % (34.0-46.0); HGB 9.9 gm/dL (11.4-16.0); Hypochromasia Marked; Lymphocytes # (A) 1.2 k/uL (1.0-4.8); Lymphocytes % (A) 23 %; MCH 21.7 pg (25.0-35.0); MCHC 28.8 g/dL (31.0-37.0); MCV 75.3 fL (80.0-100.0); Mean Platelet Volume 7.8; Microcytosis Slight; Monocytes # (A) 0.5 k/uL (0-1.0); Monocytes % (A) 9 %; Neutrophils # (A) 3.1 k/uL (1.3-7.7); Neutrophils % (A) 59 %; Platelet Count 277 k/uL (150-450); RBC 4.55 m/uL (3.80-5.40); RDW 17.3 % (11.5-15.5); WBC 5.2 k/uL (3.8-10.6)
[2020-02-04 11:59] LABS: African American GFR (CKD) >90 (>60 ml/min/1.73 sqM); Anion Gap 3 mmol/L; Blood Urea Nitrogen 14 mg/dL (7-17); Calcium 9.8 mg/dL (8.4-10.2); Carbon Dioxide 23 mmol/L (22-30); Chloride 110 mmol/L (98-107); Glucose 95 mg/dL (74-99); Non-African American GFR(CKD) >90 (>60 ml/min/1.73 sqM); Potassium 4.6 mmol/L (3.5-5.1); Sodium 136 mmol/L (137-145)
[2020-02-04 12:52] VITALS: BP 127/72; PULSE 80; RESP 18
[2020-02-04 13:55] VITALS: BMI 31.1
--- NOTE | 2020-02-04 18:38 | DS ---
DISCHARGE SUMMARY DATE OF SERVICE: 02/04/2020 FINAL DIAGNOSES: 1. Fever, possible acute urinary tract infection with possibly sepsis, present on admission improved. 2. Bilateral obstructive uropathy with multiple ureteral calculi as well as bilateral severe hydroureter, hydronephrosis, status post bilateral double-J stent placement. 3. Hypercalcemia, possibly secondary to hyperparathyroidism. 4. Multiple lung nodules. 5. Hypertensive emergency present on admission. 6. Chest pain, possibly musculoskeletal. 7. History of nicotine dependence. 8. Obesity with body mass index of 31. DISCHARGE DISPOSITION: The patient will be discharged in stable condition with guarded prognosis. Total time taken 35 minutes. HISTORY: This is a 49 -year-old with a past medical history of multiple medical problems being followed by Dr. Katz in the outpatient setting was admitted to the hospital with fever. UTI was suspected. Patient given antibiotics. Patient also had bilateral obstructive uropathy, double-J ureteral stent was inserted by Urology, but however the repeat CAT scan showed persistent hydronephrosis. However, the patient improved except spike of fever for which the antibiotics changed to Zosyn. The cultures are negative so far. The patient improved significantly. The patient is extremely keen on going home. So the patient will be discharged in stable condition with guarded prognosis. On exam, vitals are stable. Cardiovascular: S1, S2. Abdomen soft. Nervous system: No focal deficits. The patient also had features of possible hypercalcemia. The patient underwent parathyroid nuclear parathyroid scan which showed no evidence of any abnormal intake. I recommend the patient follow up with the Endocrinology closely. Otherwise, recommend follow up with Urology closely regarding the persistent hydronephrosis and follow with Dr. Katz for the primary care needs. DISCHARGE ADVICE AND MEDICATIONS: 1. Diet is cardiac diet. 2. Activity limited until followup. 3. Follow up with Dr. Katz in 2-3 days. 4. Follow up with Dr. Genevieve Francisco in 2 weeks, cardiology and followup with possible stress test as outpatient. 5. Follow up with Dr. Alexander of Endocrinology. 6. Follow up with Dr. Fuentes in 1 week. 7. Follow up with Dr. Hermosillo in 1 week. MEDICATIONS: 1. Aleve 660 mg p.o. p.r.n. 2. Anacin 1 tablet p.o. daily. 3. Augmentin 1 p.o. b.i.d. for 5 days. 4. Norvasc 5 mg p.o. b.i.d. 5. Trandate 200 mg b.i.d. 6. Zestril 20 mg p.o. daily. Followup labs CBC BMP with Dr. Katz. Once again, the patient being discharged in stable condition with guarded prognosis. The most recent calcium is 9.8 was the upper range of normal. MMODL / IJN: [id number] /
== END 2020-02-04 15:36 | disposition home or self-care (01) | DRG 854 ==
LOC: EC 07:45 → MERGE 10:33 → 3SCARD 10:33
PROVIDERS: ADMIT Internal Medicine; ATTEND Internal Medicine
PROC: 0TC78ZZ Extirpation of Matter from Left Ureter, Via Natural or Artificial Opening Endoscopic (ICD-10-PCS; principal; 2020-01-31 15:00)
PROC: 0T788DZ Dilation of Bilateral Ureters with Intraluminal Device, Via Natural or Artificial Opening Endoscopic (ICD-10-PCS; principal; 2020-01-31 15:00)
PROC: BT141ZZ Fluoroscopy of Kidneys, Ureters and Bladder using Low Osmolar Contrast (ICD-10-PCS; principal; 2020-01-31 15:00)
DX: A41.9 Sepsis, unspecified organism (principal); N13.6 Pyonephrosis; E87.1 Hypo-osmolality and hyponatremia; I16.1 Hypertensive emergency; E87.2 Acidosis; I11.9 Hypertensive heart disease without heart failure; N26.1 Atrophy of kidney (terminal); Z20.828 Contact with and (suspected) exposure to other viral communicable diseases; E21.0 Primary hyperparathyroidism; I35.0 Nonrheumatic aortic (valve) stenosis; D50.9 Iron deficiency anemia, unspecified; R91.8 Other nonspecific abnormal finding of lung field; R07.89 Other chest pain; E66.9 Obesity, unspecified; Z68.31 Body mass index [BMI] 31.0-31.9, adult; Z79.82 Long term (current) use of aspirin; Z87.442 Personal history of urinary calculi; Z87.891 Personal history of nicotine dependence; Z98.890 Other specified postprocedural states; Z98.51 Tubal ligation status; Z82.49 Family history of ischemic heart disease and other diseases of the circulatory system; Z83.3 Family history of diabetes mellitus
CPT/HCPCS: 36415; 71045; 71250; 71275; 74174; 74176; 74420; 76770; 78071; 80048; 80053; 81001; 81025; 82164; 82306; 82310; 82365; 82570; 82652; 83690; 83735; 83880; 83970; 84165; 84484; 85025; 85379; 85610; 85730; 86334; 86335; 87040; 87086; 93005; 93306; 96361; 96374; 96375; 99285

== ENCOUNTER → 2020-03-11 | Outpatient (CLI) | payer BC ==
[2020-03-11 10:31] LABS: Anisocytosis Slight; Basophils # (A) 0.1 k/uL (0-0.2); Basophils % (A) 1 %; Eosinophils # (A) 0.4 k/uL (0-0.7); Eosinophils % (A) 6 %; HCT 35.7 % (34.0-46.0); HGB 10.5 gm/dL (11.4-16.0); Hypochromasia Marked; Lymphocytes # (A) 1.4 k/uL (1.0-4.8); Lymphocytes % (A) 18 %; MCHC 29.4 g/dL (31.0-37.0); MCV 74.9 fL (80.0-100.0); Mean Platelet Volume 7.7; Microcytosis Moderate; Monocytes # (A) 0.4 k/uL (0-1.0); Monocytes % (A) 6 %; Neutrophils # (A) 5.4 k/uL (1.3-7.7); Neutrophils % (A) 68 %; Platelet Count 355 k/uL (150-450); RBC 4.76 m/uL (3.80-5.40); RDW 17.6 % (11.5-15.5); WBC 7.9 k/uL (3.8-10.6)
[2020-03-11 10:40] LABS: African American GFR (CKD) >90 (>60 ml/min/1.73 sqM); Anion Gap 4 mmol/L; Blood Urea Nitrogen 15 mg/dL (7-17); Calcium 11.7 mg/dL (8.4-10.2); Carbon Dioxide 26 mmol/L (22-30); Chloride 106 mmol/L (98-107); Glucose 102 mg/dL (74-99); Non-African American GFR(CKD) >90 (>60 ml/min/1.73 sqM); Potassium 4.6 mmol/L (3.5-5.1); Sodium 136 mmol/L (137-145)
[2020-03-11 11:16] LABS: Appearance,Urine Cloudy (Clear); Bacteria,Urine Rare /hpf; Bilirubin,Urine Negative (Negative); Blood,Urine Large (Negative); Color,Urine Yellow; Glucose,Urine (UA) Negative (Negative); Ketones,Urine Negative (Negative); Leukocyte Esterase,Urine Moderate (Negative); Mucus,Urine Rare /hpf; Nitrite,Urine Negative (Negative); PH, Urine 6.5 (5.0-8.0); Protein,Urine 2+ (Negative); RBC,Urine >182 /hpf (0-5); Specific Gravity,Urine 1.011 (1.001-1.035); Squamous Epithelial Cell,Urine 4 /hpf (0-4); Urobilinogen,Urine <2.0 mg/dL (<2.0); WBC,Urine 19 /hpf (0-5)
== END | disposition home or self-care (01) ==
LOC: LABPAT 08:46
PROVIDERS: ATTEND Urology
DX: Z01.818 Encounter for other preprocedural examination (principal); N20.2 Calculus of kidney with calculus of ureter; R31.0 Gross hematuria
CPT/HCPCS: 80048; 81001; 85025; 87086

== ENCOUNTER 2020-03-18 11:51 | Day surgery (SDC) | payer BC ==
[2020-03-15 11:30] VITALS: BMI 31.0
--- NOTE | 2020-03-17 21:18 | P.HPIHPCON ---
History of Present Illness H&P Date: 03/17/20 Ms Treadwell Is a 49 yo female with hx of bilateral ureteral stones, bilateral non-obstructing stone. She is S/P bilateral stent placement and left ureteroscopy on 01/30. She presents today for bilateral ureteroscopy to address her residual stone. I discussed with her that her right kidney is atrophic, and she has a 2 cm stone in the lower pole of the right kidney that would be do difficult to remove via Ureteroscopy. Discussed with her that will obtain a Mag3 in future, and if she has good function in the right kidney then will need to proceed with PCNL to address that stone. Discussed with her the risk of surgery includes but no limited to bleeding, infection and injury to the ureter. She understood all risks and agreed to proceed Consent for Procedure: I have explained the operation/procedure to the patient, including the risks, benefits, side effects, alternative therapies (including not receiving the proposed treatment or service), the likelihood of the patient achieving his/her goals, and potential recuperation problems for the procedure/sedation/analgesia, as well as any blood products, if indicated. I also explained to the patient the risks, benefits and side effects of the alternatives, as well as the risks related to not receiving the proposed procedure, care, treatment, or services. - Constitutional Constitutional: Denies chills, Denies fever - Cardiovascular Cardiovascular: Denies chest pain, Denies shortness of breath - Respiratory Respiratory: Denies cough, Denies 7 - Genitourinary (Female) Genitourinary: Reports flank pain, Reports kidney stones, Denies dysuria, Denies hematuria Past Medical History Past Medical History: Hypertension Additional Past Medical History / Comment(s): kidney stones, hospital admission in Jan. for UTI, possible sepsis, elevated BP & placed on BP meds @that time History of Any Multi-Drug Resistant Organisms: None Reported Past Surgical History: Tubal Ligation Additional Past Surgical History / Comment(s): lithotripsy for kidney stones, cystoscopy,lithotripsy,ureteroscopy in Jan. Past Anesthesia/Blood Transfusion Reactions: No Reported Reaction Smoking Status: Former smoker - Past Family History Father Family Medical History: Congestive Heart Failure (CHF), Coronary Artery Disease (CAD), Diabetes Mellitus, Myocardial Infarction ([place]) Medications and Allergies Home Medications Medication Instructions Recorded Confirmed Type Aspirin/Caffeine [Anacin 400-32 mg 1 tab PO DAILY PRN 01/29/20 03/15/20 History Tablet] Labetalol [Trandate] 200 mg PO BID #60 tab 02/02/20 03/15/20 Rx amLODIPine [Norvasc] 5 mg PO BID #60 tab 02/02/20 03/15/20 Rx lisinopriL [Zestril] 20 mg PO DAILY #30 tab 02/02/20 03/15/20 Rx traMADol HCL [Ultram] 50 mg PO Q6HR PRN 03/15/20 03/15/20 History Allergies Allergy/AdvReac Type Severity Reaction Status Date / Time No Known Allergies Allergy Verified 03/15/20 10:39 Surgical - Exam - General well developed, well nourished - Respiratory normal expansion, normal respiratory effort - Abdomen Abdomen: soft, non tender - Psychiatric oriented to time, oriented to person, oriented to place Assessment and Plan Assessment: 49 yo female with bilateral kidney stones OR for cystoscopy, bilateral ureteroscopy, holmium laser lithotripsy, stone basketting and stent exchange
[~2020-03-18 11:51] MED LIST: DEXAMETHASONE SOD PHOSPHATE 4 MG/ML 1 ML VIAL IV ONE; HYDROmorphone 0.5 MG/0.5 ML SYRINGE IVP PRN; LACTATED RINGERS 1,000 ML IV SCH; LIDOCAINE 1% (10MG/ML) FOR IV START INTRADERMA PRN; MIDAZOLAM 2 MG/2 ML VIAL IV PRN; ONDANSETRON 4 MG/2 ML VIAL IVP ONE
--- NOTE | 2020-03-18 12:07 | XR ---
EXAMINATION TYPE: XR KUB DATE OF EXAM: 03/18/2020 12:00 PM CLINICAL HISTORY: Fever, history of bilateral renal stents TECHNIQUE: Two supine KUB images of the abdomen are obtained. COMPARISON: CT February 02, 2020. FINDINGS: Redemonstration of bilateral ureter stents, position stable. Stable multifocal left sided r enal calculi. Less well-seen right-sided renal calculi due to overlying fecal debris. Persistent 10 m m calculus near right UPJ noted. Small calculi along distal left ureter HAVE progressed slightly in i nterval since CT. Overall nonobstructive bowel gas pattern. Nonspecific over 1 cm Sclerotic lesion right iliac bone genevieve r sacroiliac joint redemonstrated. IMPRESSION: As above.
[2020-03-18] MEDS ORDERED: SUCCINYLCHOLINE CHLORIDE 100 MG/5 ML SYR IV ONE (13:18)
[2020-03-18] MEDS ORDERED: HYDROmorphone (PF) 1 MG/ML ONE (13:18)
[2020-03-18] MEDS ORDERED: PROPOFOL 10 MG/ML 20 ML VIAL IV ONE (13:18)
[2020-03-18] MEDS ORDERED: MIDAZOLAM 2 MG/2 ML VIAL ONE (13:18)
[2020-03-18] MEDS ORDERED: KETOROLAC 15 MG/ML 1 ML VIAL ONE (13:18)
[2020-03-18] MEDS ORDERED: LIDOCAINE 1% INJ 10MG/ML (20 ML MDV) ONE (13:18)
[2020-03-18] MEDS ORDERED: fentaNYL (PF) 50 MCG/ML 2 ML AMP ONE (13:18)
[2020-03-18] MEDS ORDERED: ePHEDrine SULFATE/0.9% NACL/PF 50 MG/5 ML SYRINGE IV ONE (13:18)
[2020-03-18] MEDS ORDERED: LACTATED RINGERS 1,000 ML IV ONE (14:03)
[2020-03-18] MEDS ORDERED: IOPAMIDOL-370 50ML BTL IRRIGATION ONE ×2 (15:05)
--- NOTE | 2020-03-18 15:27 | P.OP ---
Date of Procedure: 03/18/20 Preoperative Diagnosis: bilateral ureteral stones Postoperative Diagnosis: same Procedure(s) Performed: cystoscopy, bilateral ureteroscopy, holmium laser lithotripsy, stone basektting, left stent removal and right stent exchange Implants: 6Fr X 26 cm stent Anesthesia: RAFAEL Surgeon: Sabas Crawley Estimated Blood Loss (ml): 5 Pathology: other (bilateral kidney stones) Condition: stable Disposition: PACU Indications for Procedure: Ms Treadwell Is a 49 yo female with hx of bilateral ureteral stones, bilateral non-obstructing stone. She is S/P bilateral stent placement and left ureteroscopy on 01/30. She presents today for bilateral ureteroscopy to address her residual stone. I discussed with her that her right kidney is atrophic, and she has a 2 cm stone in the lower pole of the right kidney that would be do difficult to remove via Ureteroscopy. Discussed with her that will obtain a Mag3 in future, and if she has good function in the right kidney then will need to proceed with PCNL to address that stone. Discussed with her the risk of surgery includes but no limited to bleeding, infection and injury to the ureter. She understood all risks and agreed to proceed Operative Findings: Multiple small stones along the course of the left ureter,stone in the left upper calyx, multiple small stones in the left lower calyx. large Impacted stone at the UPJ on the right Description of Procedure: She was brought to the operating room, general anesthesia was induced. She was prepped and draped in sterile fashion a placement dorsal lithotomy position. Cystoscopy fitted with 21-Palestinian sheath was inserted per urethra, cystoscopy was performed showed no abnormality within the bladder. Attention was carried to the left ureteral orifice and the stent was grasped and removed. Next a s emirigid ureteroscope was inserted and advanced up the left ureteral orifice, multiple 3-4 stones were encountered along the course of the distal and proximal ureter. Using the holmium laser the stones were fragmented into smaller fragments. The fragments were removed and sent to pathology. at this time pullback ureteroscopy was performed showed no additional ureteral stones or injury to the ureter. Next a sensor wire was advanced through the ureteroscope and the ureteroscope was withdrawn with the wire in place. Next a 23-03-Jvbmjp access sheath was advanced over the wire under fluoroscopy, into the proximal ureter. Next the flexibile ureteroscope was inserted and advanced up to the kidney. Stone was encountered in the upper calyx and multiple small stones were encountered in the lower calyx. The stones were fragmented into small fragments, sizable fragments were removed using the stone basket. Repeat renoscopy showed no injury to the kidney or any sizable fragments. Pullback ureteroscopy was performed which showed no injury to ureter or any ureteral fragments. At this time the ureteroscope was withdrawn and a rigid cystoscope was inserted, the right ureteral orifice was visualized and the stent was grasped and removed. Next a semirigid ureteroscope was advanced through the right ureter and up into the proximal ureter. At this time the stone was encountered at the UPJ, but the stone was impacted and there was significant ureteral edema, and there was urothelium grown around the stone. Using the holmium laser the stone was fragmented using the laser, after fragmenting the distal portion of the stone, it was difficult to fragment the remainder of the stone using the rigid ureteroscope At this time the semirigid ureteroscope was withdrawn and a sensor wire was advanced. Pullback ureteroscopy was performed showed no injury to the ureter. Next a 38-03-Pdytug access sheath was passed over the wire under fluoroscopy, the stone was encountered in the proximal ureter. Using the holmium laser the remaining of the stone was fragmented, sizable fragments were removed and sent to pathology. Repeat renoscopy showed no sizable fragments or injury to the kidney. I attempted to get to the lowest most portion of the kidney but I was not able to as the scope was at maximum flexion. At this time pullback ureteroscopy was performed showed no injury to the kidney or to the ureter, there was significant edema at the site of stone impaction. Pullback ureteroscopy also demonstrated no sizable stones. At this time a 6-Palestinian by 26 cm stent was passed over the wire, the proximal curl was visualized on fluoroscopy and distal curl was visualized using the cystoscope. The bladder was emptied at the end of the case. Patient tolerated the procedure well and was taken to PACU in stable condition
[2020-03-18 15:30] VITALS: TEMP 97.2
[2020-03-18 15:33] VITALS: RESP 16
--- NOTE | 2020-03-18 15:43 | FL ---
EXAMINATION TYPE: FL urography retrograde DATE OF EXAM: 03/18/2020 COMPARISON: Same day abdominal x-ray HISTORY: Bilateral renal stones. TECHNIQUE: Fluoroscopy. FINDINGS: Fluoroscopic guidance was provided during stone treatment procedure performed by Dr. Grey ponce A total of 27 seconds of fluoroscopic time was utilized during the procedure and 5 spot images wa s acquired. Intraoperative images show bilateral access subsequent placement of guidewire and suspect ed new ureter stents. IMPRESSION: As Above.
[2020-03-18 16:29] VITALS: BP 130/82; PULSE 59
[2020-03-18] MEDS ORDERED: HYDROcodone/APAP 5-325MG 1 EACH TAB ONE (16:31)
[2020-03-18] MEDS ORDERED: HYDROcodone/APAP 5-325MG 1 EACH TAB PO ONE (16:32)
== END 2020-03-18 17:23 | disposition home or self-care (01) ==
LOC: OR 11:51
PROVIDERS: ATTEND Urology
DX: N20.2 Calculus of kidney with calculus of ureter (principal); N26.1 Atrophy of kidney (terminal); I10 Essential (primary) hypertension; Z87.442 Personal history of urinary calculi; Z87.440 Personal history of urinary (tract) infections; Z98.51 Tubal ligation status; Z87.891 Personal history of nicotine dependence; Z82.49 Family history of ischemic heart disease and other diseases of the circulatory system; Z83.3 Family history of diabetes mellitus; Z79.899 Other long term (current) drug therapy
CPT/HCPCS: 81025; 82365; 74420; 74018; 52356; 52353; C2625; C1894; C1758; C1769 ×2; J1100; J0690; J2405; Q9967

== ENCOUNTER → 2020-03-27 | Outpatient (CLI) | payer BC ==
[~2020-03-27] MED LIST changes: -DEXAMETHASONE SOD PHOSPHATE 4 MG/ML 1 ML VIAL IV ONE; +FUROSEMIDE 10 MG/ML 2 ML VIAL IV ONE; -HYDROmorphone 0.5 MG/0.5 ML SYRINGE IVP PRN; -LACTATED RINGERS 1,000 ML IV SCH; -LIDOCAINE 1% (10MG/ML) FOR IV START INTRADERMA PRN; -MIDAZOLAM 2 MG/2 ML VIAL IV PRN; -ONDANSETRON 4 MG/2 ML VIAL IVP ONE
--- NOTE | 2020-03-28 07:06 | NM ---
EXAMINATION TYPE: NM lasix renogram DATE OF EXAM: 03/27/2020 COMPARISON: CTA aorta January 29, 2020 HISTORY: Right-sided flank pain and pelvic pain with dysuria and blood in urine per patient. History of bilateral ureter calculus and lithotripsy. Following administration of 9.62 mCi Tc 99m MAG3 with 20mg Lasix. Immediate images post injection FINDINGS: Left: 81.8 %. Right: 18.2 %. Max renal flow left: 12.2 minutes. Max renal flow right: 18.2 minutes. Dynamic arterial images show increased blood flow to the left kidney versus right kidney, CT shows sm aller caliber right renal artery versus the opposite left side without significant plaque or stenosis . Delayed images show asymmetric more left-sided cortical medullary uptake and excretion with persisten t left-sided hydronephrosis. There is delayed right-sided uptake with suggestion of persistent right- sided hydronephrosis. Note is made of placement of bilateral ureter stents in the recent interval. Le ft kidney shows appropriate response to Lasix with increased excretion. IMPRESSION: Abnormal increased function of left kidney versus right kidney may be on the basis of sma ller caliber right renal artery. There is persistent left-sided hydronephrosis despite stent placemen t with satisfactory excretion identified. Right kidney shows delayed and diminished cortical medullar y uptake and no appropriate response or lack of excretion from Lasix administration.
== END | disposition home or self-care (01) ==
LOC: RADNMMAIN 12:57
PROVIDERS: ATTEND Urology
DX: N13.30 Unspecified hydronephrosis (principal); R93.421 Abnormal radiologic findings on diagnostic imaging of right kidney; Z96.89 Presence of other specified functional implants
CPT/HCPCS: 78708; A9562

== ENCOUNTER 2020-12-09 20:48 | Emergency (ER) | payer BC ==
[2020-12-09 21:21] VITALS: TEMP 98.2
[2020-12-09] MEDS ORDERED: ONDANSETRON 4 MG/2 ML VIAL IVP STA (23:04)
[2020-12-09] MEDS ORDERED: SODIUM CHLORIDE 0.9% 500 ML 500 ML IV STA (23:04)
[2020-12-09] MEDS ORDERED: MAG HYDROX/AL HYDROX/SIMETH 30 ML, HYOSCYAMINE ELIXIR 10 ML, LIDOCAINE VISCOUS 2% 10 ML PO STA ×3 (23:05)
--- NOTE | 2020-12-09 23:07 | ED ---
Abdominal Pain HPI - General Chief Complaint: Abdominal Pain Stated Complaint: L side Pain Time Seen by Provider: 12/09/20 22:19 Source: patient Mode of arrival: ambulatory Limitations: no limitations - History of Present Illness Initial Comments: This patient is a 50-year-old woman who presents to be evaluated for left upper quadrant pain. The pain is been going on for 4 days now intermittently. She states that when it comes on she takes naproxen which seems to help. The pain lasts up to hours. There is been some accompanying nausea. She has not noted any other modifying factors. MD Complaint: abdominal pain Onset/Timin -: days(s) Location: [facility] Radiation: none Migration to: no migration Severity: moderate Quality: cramping, aching, burning Consistency: intermittent Improves With: other (Naproxen) Worsens With: nothing Associated Symptoms: nausea Treatments Prior to Arrival: NSAIDs - Related Data LMP (females 10-50): last week Home Medications Medication Instructions Recorded Confirmed Aspirin/Caffeine [Anacin 400-32 mg 1 tab PO DAILY PRN 01/29/20 03/18/20 Tablet] traMADol HCL [Ultram] 50 mg PO Q6HR PRN 03/15/20 03/18/20 Previous Rx's Medication Instructions Recorded Labetalol [Trandate] 200 mg PO BID #60 tab 02/02/20 amLODIPine [Norvasc] 5 mg PO BID #60 tab 02/02/20 lisinopriL [Zestril] 20 mg PO DAILY #30 tab 02/02/20 Cephalexin [Keflex] 500 mg PO Q8HR #15 cap 03/18/20 Ibuprofen 600 mg PO Q8H PRN #30 tab 03/18/20 Famotidine [Pepcid] 20 mg PO BID #14 tablet 12/10/20 Nitrofurantoin Monohyd/M-Cryst 100 mg PO Q12HR #6 cap 12/10/20 [Macrobid] Allergies Allergy/AdvReac Type Severity Reaction Status Date / Time No Known Allergies Allergy Verified 12/09/20 21:19 Review of Systems ROS Statement: Those systems with pertinent positive or pertinent negative responses have been documented in the HPI. ROS Other: All systems not noted in ROS Statement are negative. Constitutional: Denies: fever, chills Respiratory: Denies: cough, dyspnea Cardiovascular: Denies: chest pain, palpitations Gastrointestinal: Reports: as per HPI, abdominal pain, nausea. Denies: vomiting, diarrhea Genitourinary: Denies: dysuria, hematuria Musculoskeletal: Denies: back pain Skin: Denies: rash Neurological: Denies: headache, weakness, numbness Psychiatric: Denies: anxiety Past Medical History Past Medical History: No Reported History Additional Past Medical History / Comment(s): kidney stones History of Any Multi-Drug Resistant Organisms: None Reported Past Surgical History: Tubal Ligation Additional Past Surgical History / Comment(s): lithotripsy for kidney stones, tubal ligation Past Anesthesia/Blood Transfusion Reactions: No Reported Reaction Past Psychological History: No Psychological Hx Reported Smoking Status: Former smoker Past Alcohol Use History: None Reported Past Drug Use History: None Reported - Past Family History Father Family Medical History: Congestive Heart Failure (CHF), Coronary Artery Disease (CAD), Diabetes Mellitus, Myocardial Infarction ([place]) General Exam Limitations: no limitations General appearance: alert, in no apparent distress Head exam: Present: atraumatic, normocephalic Eye exam: Present: normal appearance. Absent: scleral icterus, conjunctival injection ENT exam: Present: normal oropharynx Neck exam: Present: normal inspection Respiratory exam: Present: normal lung sounds bilaterally. Absent: respiratory distress, wheezes, rales, rhonchi, stridor Cardiovascular Exam: Present: regular rate, normal rhythm, normal heart sounds. Absent: systolic murmur, diastolic murmur, rubs, gallop GI/Abdominal exam: Present: soft. Absent: distended, tenderness, guarding, rebound, rigid, mass Extremities exam: Present: normal inspection, normal capillary refill. Absent: pedal edema, calf tenderness Back exam: Present: normal inspection. Absent: CVA tenderness (R), CVA tenderness (L) Neurological exam: Present: alert Skin exam: Present: warm, dry, intact, normal color. Absent: rash Course Vital Signs 12/09/20 12/10/20 21:19 02:19 Temperature 98.2 F Pulse Rate 81 68 Respiratory 18 19 Rate Blood Pressure 205/91 162/92 O2 Sat by Pulse 95 97 Oximetry Medical Decision Making - Lab Data Result diagrams: 12/09/20 23:04 12/09/20 23:04 Lab Results 12/09/20 12/09/20 12/09/20 Range/Units 23:04 23:04 23:07 WBC 11.7 H (3.8-10.6) k/uL RBC 4.76 (3.80-5.40) m/uL Hgb 12.9 (11.4-16.0) gm/dL Hct 39.7 (34.0-46.0) % MCV 83.3 (80.0-100.0) fL MCH 27.1 (25.0-35.0) pg MCHC 32.5 (31.0-37.0) g/dL RDW 16.9 H (11.5-15.5) % Plt Count 300 (150-450) k/uL MPV 8.8 Neutrophils % 76 % Lymphocytes % 15 % Monocytes % 5 % Eosinophils % 2 % Basophils % 0 % Neutrophils # 8.9 H (1.3-7.7) k/uL Lymphocytes # 1.7 (1.0-4.8) k/uL Monocytes # 0.6 (0-1.0) k/uL Eosinophils # 0.2 (0-0.7) k/uL Basophils # 0.0 (0-0.2) k/uL Hypochromasia Slight Anisocytosis Slight Sodium 133 L (137-145) mmol/L Potassium 3.8 (3.5-5.1) mmol/L Chloride 104 (98-107) mmol/L Carbon Dioxide 21 L (22-30) mmol/L Anion Gap 8 mmol/L BUN 16 (7-17) mg/dL Creatinine 0.70 (0.52-1.04) mg/dL Est GFR (CKD-EPI)AfAm >90 (>60 ml/min/1.73 sqM) Est GFR (CKD-EPI)NonAf >90 (>60 ml/min/1.73 sqM) Glucose 106 H (74-99) mg/dL Calcium 9.7 (8.4-10.2) mg/dL Total Bilirubin 0.3 (0.2-1.3) mg/dL AST 26 (14-36) U/L ALT 16 (4-34) U/L Alkaline Phosphatase 172 H (38-126) U/L Troponin I <0.012 (0.000-0.034) ng/mL Total Protein 6.8 (6.3-8.2) g/dL Albumin 3.9 (3.5-5.0) g/dL Amylase 59 (30-110) U/L Lipase 133 (23-300) U/L Urine Color Urine Appearance (Clear) Urine pH (5.0-8.0) Ur Specific Cornell (1.001-1.035) Urine Protein (Negative) Urine Glucose (UA) (Negative) Urine Ketones (Negative) Urine Blood (Negative) Urine Nitrite (Negative) Urine Bilirubin (Negative) Urine Urobilinogen (<2.0) mg/dL Ur Leukocyte Esterase (Negative) Urine WBC (0-5) /hpf Ur Squamous Epith Cells (0-4) /hpf Amorphous Sediment (None) /hpf Urine Bacteria (None) /hpf Hyaline Casts (0-2) /lpf Urine Mucus (None) /hpf Urine HCG, Qual (Not Detectd) 12/09/20 12/09/20 Range/Units 23:44 23:44 WBC (3.8-10.6) k/uL RBC (3.80-5.40) m/uL Hgb (11.4-16.0) gm/dL Hct (34.0-46.0) % MCV (80.0-100.0) fL MCH (25.0-35.0) pg MCHC (31.0-37.0) g/dL RDW (11.5-15.5) % Plt Count (150-450) k/uL MPV Neutrophils % % Lymphocytes % % Monocytes % % Eosinophils % % Basophils % % Neutrophils # (1.3-7.7) k/uL Lymphocytes # (1.0-4.8) k/uL Monocytes # (0-1.0) k/uL Eosinophils # (0-0.7) k/uL Basophils # (0-0.2) k/uL Hypochromasia Anisocytosis Sodium (137-145) mmol/L Potassium (3.5-5.1) mmol/L Chloride (98-107) mmol/L Carbon Dioxide (22-30) mmol/L Anion Gap mmol/L BUN (7-17) mg/dL Creatinine (0.52-1.04) mg/dL Est GFR (CKD-EPI)AfAm (>60 ml/min/1.73 sqM) Est GFR (CKD-EPI)NonAf (>60 ml/min/1.73 sqM) Glucose (74-99) mg/dL Calcium (8.4-10.2) mg/dL Total Bilirubin (0.2-1.3) mg/dL AST (14-36) U/L ALT (4-34) U/L Alkaline Phosphatase (38-126) U/L Troponin I (0.000-0.034) ng/mL Total Protein (6.3-8.2) g/dL Albumin (3.5-5.0) g/dL Amylase (30-110) U/L Lipase (23-300) U/L Urine Color Yellow Urine Appearance Cloudy H (Clear) Urine pH 6.0 (5.0-8.0) Ur Specific Cornell 1.017 (1.001-1.035) Urine Protein Trace H (Negative) Urine Glucose (UA) Negative (Negative) Urine Ketones Negative (Negative) Urine Blood Small H (Negative) Urine Nitrite Negative (Negative) Urine Bilirubin Negative (Negative) Urine Urobilinogen <2.0 (<2.0) mg/dL Ur Leukocyte Esterase Moderate H (Negative) Urine WBC 7 H (0-5) /hpf Ur Squamous Epith Cells 22 H (0-4) /hpf Amorphous Sediment Rare H (None) /hpf Urine Bacteria Occasional H (None) /hpf Hyaline Casts 3 H (0-2) /lpf Urine Mucus Rare H (None) /hpf Urine HCG, Qual Not Detected (Not Detectd) - EKG Data -: EKG Interpreted by Sc EKG shows normal: sinus rhythm (With sinus arrhythmia), axis (Normal), intervals (Normal), QRS complexes (Normal), ST-T waves (Normal) Rate: normal (Rate 85 bpm) Interpretation: normal EKG Disposition Clinical Impression: Abdominal pain Disposition: HOME SELF-CARE Condition: Good Instructions (If sedation given, give patient instructions): Abdominal Pain (ED) Prescriptions: Nitrofurantoin Monohyd/M-Cryst [Macrobid] 100 mg PO Q12HR #6 cap Famotidine [Pepcid] 20 mg PO BID #14 tablet Is patient prescribed a controlled substance at d/c from ED?: No Referrals: Sheela Braun MD [Primary Care Provider] - 1-2 days Lb Laguna MD [STAFF PHYSICIAN] - 1-2 days
[2020-12-10 00:07] LABS: Anisocytosis Slight; Basophils % (A) 0 %; Eosinophils # (A) 0.2 k/uL (0-0.7); Eosinophils % (A) 2 %; HCT 39.7 % (34.0-46.0); HGB 12.9 gm/dL (11.4-16.0); Hypochromasia Slight; Lymphocytes # (A) 1.7 k/uL (1.0-4.8); Lymphocytes % (A) 15 %; MCH 27.1 pg (25.0-35.0); MCHC 32.5 g/dL (31.0-37.0); MCV 83.3 fL (80.0-100.0); Mean Platelet Volume 8.8; Monocytes # (A) 0.6 k/uL (0-1.0); Monocytes % (A) 5 %; Neutrophils # (A) 8.9 k/uL (1.3-7.7); Neutrophils % (A) 76 %; Platelet Count 300 k/uL (150-450); RBC 4.76 m/uL (3.80-5.40); RDW 16.9 % (11.5-15.5); WBC 11.7 k/uL (3.8-10.6)
[2020-12-10 00:18] LABS: ALT 16 U/L (4-34); AST 26 U/L (14-36); African American GFR (CKD) >90 (>60 ml/min/1.73 sqM); Albumin 3.9 g/dL (3.5-5.0); Alkaline Phosphatase 172 U/L (38-126); Amylase 59 U/L (30-110); Anion Gap 8 mmol/L; Blood Urea Nitrogen 16 mg/dL (7-17); Calcium 9.7 mg/dL (8.4-10.2); Carbon Dioxide 21 mmol/L (22-30); Chloride 104 mmol/L (98-107); Glucose 106 mg/dL (74-99); Lipase 133 U/L (23-300); Non-African American GFR(CKD) >90 (>60 ml/min/1.73 sqM); Potassium 3.8 mmol/L (3.5-5.1); Sodium 133 mmol/L (137-145); Total Bilirubin 0.3 mg/dL (0.2-1.3); Total Protein 6.8 g/dL (6.3-8.2)
[2020-12-10 00:24] LABS: Amorphous Sediment,Urine Rare /hpf; Appearance,Urine Cloudy (Clear); Bacteria,Urine Occasional /hpf; Bilirubin,Urine Negative (Negative); Blood,Urine Small (Negative); Color,Urine Yellow; Glucose,Urine (UA) Negative (Negative); Hyaline Casts,Urine 3 /lpf (0-2); Ketones,Urine Negative (Negative); Leukocyte Esterase,Urine Moderate (Negative); Mucus,Urine Rare /hpf; Nitrite,Urine Negative (Negative); Protein,Urine Trace (Negative); Specific Gravity,Urine 1.017 (1.001-1.035); Squamous Epithelial Cell,Urine 22 /hpf (0-4); Urobilinogen,Urine <2.0 mg/dL (<2.0); WBC,Urine 7 /hpf (0-5)
--- NOTE | 2020-12-10 01:51 | US ---
EXAMINATION TYPE: US abdomen limited DATE OF EXAM: 12/10/2020 COMPARISON: CT 02/02/2020 CLINICAL HISTORY: Attention RUQ. EXAM MEASUREMENTS: Liver Length: 19.5 cm Gallbladder Wall: 0.2 cm CBD: 0.4 cm Right Kidney: 10.8 x 6.1 x 5.7 cm Pancreas: Obscured by bowel gas Liver: Enlarged, heterogeneous Gallbladder: wnl Evidence for sonographic Andrea's sign: No CBD: wnl Right Kidney: Nodular contour. Echogenic foci measuring 0.6 cm Midline, at the patient's area of pain, there appears to be a non-peristalsing prominent loop of mehrdad l visualized. This was noted at the beginning and the end of the exam IMPRESSION: No gallstones or dilated ducts. No sign of ascites. Right kidney shows no sign of obstruc tion. Nonobstructing calculi in the right kidney.
[2020-12-10 02:22] VITALS: BP 162/92; PULSE 68; RESP 19
== END 2020-12-10 02:39 | disposition home or self-care (01) ==
LOC: EC 20:48
DX: R10.12 Left upper quadrant pain (principal); Z79.82 Long term (current) use of aspirin; Z79.1 Long term (current) use of non-steroidal anti-inflammatories (NSAID); Z79.899 Other long term (current) drug therapy; Z87.891 Personal history of nicotine dependence; Z82.49 Family history of ischemic heart disease and other diseases of the circulatory system; Z83.3 Family history of diabetes mellitus
CPT/HCPCS: 36415; 93005; 80053; 82150; 83690; 84484; 85025; 81001; 81025; 76705; 96374; 96361 ×2; 99284; J2405